=== PATIENT | male | born 1940 | race Caucasian/White ===

== ENCOUNTER → 2020-03-11 09:06 | Outpatient (CLI) | payer MEDICARE, OTHER, SELFPAY ==
--- NOTE | 2020-03-11 09:42 | DI.ECHO.S_ITS ---
Echocardiogram Report + + :Name: NAJMA HAMMER Study Date: 03/11/2020 Height: 69 in : :[facility] Weight: 248 lb : : Gender: Male BSA: 2.3 m2 : :: 1940 Age: 79 yrs BP: 155/82 mmHg: :Reason For Study: HYPERTENSIVE HD : : Performed By: Ole Franco : :Referring: JOSY PALOMARES : + + Interpretation Summary The ejection fraction is estimated to be 60-65%. There is no significant valvular heart disease. Procedure: A two-dimensional transthoracic echocardiogram with color flow and Doppler was performed. The study quality was technically adequate. There is no prior echocardiogram noted for this patient. The subcostal views were difficult to obtain and are suboptimal in quality. The suprasternal notch views were difficult to obtain and are suboptimal in quality. The patient was in normal sinus rhythm during the exam. Left Ventricle: The left ventricle is normal in size. There is normal left ventricular wall thickness. The ejection fraction is estimated to be 60-65%. There are no focal wall motion abnormalities. Right Ventricle: The right ventricle is normal in size and function. Atria: Both atria are normal in size. The interatrial septum is intact with no evidence for an atrial septal defect. Mitral Valve: There is mild mitral annular calcification. There is no mitral regurgitation noted. Aortic Valve: The aortic valve is not well visualized. There is no aortic valve stenosis. No aortic regurgitation is present. Tricuspid Valve: The tricuspid valve is normal in structure and function. No tricuspid regurgitation. Pulmonary artery pressures cannot be estimated because of the lack of a measurable TR jet velocity. Pulmonic Valve: The pulmonic valve is normal in structure and function. There is no pulmonic valvular regurgitation. Great Vessels: The aortic root is normal size. The ascending aorta is at the upper limits of normal in size. The pulmonary artery is normal size. The inferior vena cava was not well visualized. Pericardium/ Pleura There is no pericardial effusion. There is no pleural effusion. MMode/2D Measurements & Calculations LVIDd: 5.1 cm LVOT diam: 2.1 cm LVIDs: 3.3 cm Ao root diam: 3.7 cm FS: 34.8 % asc Aorta Diam: 3.5 cm EPSS: 1.1 cm IVSd: 0.87 cm LVPWd: 1.0 cm LV wing. diameter/BSA (cm/m^2): 2.3 LV sys. diameter/BSA (cm/m^2): 1.5 LA dimension: 3.7 cm RA long axis: 5.2 cm LA A2 area: 22.3 cm2 RA area: 15.1 cm2 LA A4 area: 15.8 cm2 RA vol: 37.0 ml LA length (vol): 5.1 cm RA : 16.3 ml/m2 LA vol: 59.2 ml LA vol index: 26.2 ml/m2 Doppler Measurements & Calculations Ao V2 max: 158.4 cm/sec LVOT Max Michael: 99.0 cm/sec Ao V2 mean: 108.5 cm/sec LV V1 max P.9 mmHg Ao max P.0 mmHg LV V1 VTI: 21.2 cm Ao mean P.2 mmHg ELLIOT(I,D): 2.6 cm2 Ao V2 VTI: 27.3 cm ELLIOT(V,D): 2.1 cm2 sev ratio: 0.78 ELLIOT indexed to BSA (cm^2/m^2): 1.1 MV E max michael: 65.3 cm/sec PA V2 max: 95.8 cm/sec MV A max michael: 106.3 cm/sec PA V2 mean: 68.1 cm/sec MV E/A: 0.61 PA mean P.0 mmHg Med Peak E' Michael: 4.4 cm/sec PA pr(Accel): 67.0 mmHg E/E' med: 14.8 Lat Peak E' Michael: 4.5 cm/sec E/E' lat: 14.4 E/e' average: 14.6 MV dec time: 0.34 sec SV(LVOT): 69.8 ml Reading Physician:03:45 PM
== END ==
PROVIDERS: Referring Provider Family Medicine; Visit Provider Family Medicine
DX: I11.9 Hypertensive heart disease without heart failure (principal); R60.9 Edema, unspecified
CPT/HCPCS: 93306

== ENCOUNTER → 2021-09-06 16:01 | Outpatient (CLI) | payer MEDICARE, OTHER, SELFPAY ==
[2021-09-06 18:54] LABS: BUN Creatinine Ratio 18.5 (6-22); Blood Urea Nitrogen 24 mg/dL (9-20); Calcium 9.8 mg/dL (8.4-10.2); Carbon Dioxide 28 mmol/L (22-32); Chloride 105 mmol/L (98-107); Estimated Glomerular Filt Rate 52.7 mL/min (>60); Glucose 141 mg/dL (80-110); HEMOLYSIS < 15 (0-50); Potassium 3.8 mmol/L (3.4-5.1); Sodium 140 mmol/L (137-145)
== END ==
PROVIDERS: Visit Provider Urology
DX: N39.0 Urinary tract infection, site not specified (principal); R31.0 Gross hematuria; R30.0 Dysuria; B96.20 Unspecified Escherichia coli [E. coli] as the cause of diseases classified elsewhere; Z77.22 Contact with and (suspected) exposure to environmental tobacco smoke (acute) (chronic)
CPT/HCPCS: 36415; 80048; 81002; 87077; 87086; 87186; 99214

== ENCOUNTER → 2021-09-27 12:12 | Outpatient (CLI) | payer MEDICARE, OTHER, SELFPAY ==
--- NOTE | 2021-09-27 12:14 | DI.CT.S_ITS ---
PROCEDURE: CT ABDOMEN PELVIS WO/W CON INDICATIONS: Gross hematuria/recurrent urinary tract infection TECHNIQUE: Optional 5 mm thick noncontrast images acquired from the diaphragm to the symphysis pubis. After the administration of intravenous contrast, 5 mm thick images acquired from the diaphragm to the symphysis pubis after a 10-minute delay. 2 mm thick coronal and sagittal reformats were then performed of the kidneys and ureters. For radiation dose reduction, the following was used: automated exposure control, adjustment of mA and/or kV according to patient size. COMPARISON: None. FINDINGS: Image quality: Excellent. Lung bases: Lung bases are clear. Heart size is normal. Urinary system: Nonspecific perinephric stranding. No evidence of hydronephrosis/hydroureter. 9.5 mm, nonobstructing calculus in the left lower pole. No appreciable right nephrolithiasis Renal calyces appear normal in morphology when filled with contrast. Opacified portions of both ureters demonstrate normal caliber. Bladder wall thickness is normal. No calcified bladder stones. Other solid organs: Liver is normal in size and enhancement. At least 2 hypoattenuating lesions are seen, measuring up to 1.3 cm (2-33), which may represent cysts. Gallbladder within normal limits . Biliary system is non dilated. Pancreas enhances normally. Spleen is normal in size and enhancement. No adrenal nodules. Peritoneum and bowel: Small hiatal hernia. No intestinal obstruction or inflammatory change. Normal appearance of the appendix. No free fluid or air. Nodes and vessels: No retroperitoneal or mesenteric adenopathy by size criteria. Aorta and inferior vena cava are normal in size. Abdominal wall: No ventral hernias. 3.6 cm fat attenuation lesion within the left rectus femoris, compatible with intramuscular lipoma. Pelvis: No pathologic free pelvic fluid. No inguinal hernias or adenopathy. Lipoma of the right spermatic cord. Bones: Mild T12 superior endplate compression deformity, age indeterminate. Multifocal degenerative change IMPRESSION: 1. Left nephrolithiasis without evidence of obstructive uropathy. 2. At least 2 hypoattenuating lesions are seen in the liver, which may reflect cysts. Dictated by: Pasha Moody M.D. on 09/27/2021 at 13:31 Approved by: Pasha Moody M.D. on 09/27/2021 at 13:40
== END ==
PROVIDERS: Referring Provider Urology; Visit Provider Urology
DX: R31.0 Gross hematuria (principal); N39.0 Urinary tract infection, site not specified; N20.0 Calculus of kidney; K76.9 Liver disease, unspecified
CPT/HCPCS: 74178

== ENCOUNTER 2023-01-25 10:16 | Inpatient (IN) | payer OTHER, SELFPAY ==
[2023-01-25] VITALS (28 sets, daily range): BP systolic 132–222; BP diastolic 72–154; PULSE 45–137; RESP 6–24; TEMP 36.8–37.5; O2SAT 90–95; BMI 35.9; BMI 34.6
--- NOTE | 2023-01-25 11:01 | PC.NURSE ---
pt reports he is borderline prediabetic with diet control only. He states he used to have nurse that would come check his sugars for him, but he does not recall what his normal sugar was and this has not happened in 1 month.
[2023-01-25 11:16] LABS: Add Manual Diff / Slide Review NO; Basophils Absolute Auto 100 /uL (0-100); Basophils Percent Auto 1.2 % (0-2); Eosinophils Absolute Auto 100 /uL (0-450); Eosinophils Percent Auto 0.7 % (2-4); Hematocrit 42.2 % (41-53); Hemoglobin 14.4 g/dL (13.5-17.5); Lymphocytes Absolute Auto 500 /uL (1100-4500); Lymphocytes Percent Auto 5.2 % (25-40); Mean Corpuscular HGB Conc 34.1 % (30-36); Mean Corpuscular Hemoglobin 31.1 PG (26-34); Monocytes Absolute Auto 600 /uL (0-900); Monocytes Percent Auto 5.7 % (3-14); Neutrophils Absolute Auto 8400 /uL (1500-7000); Neutrophils Percent Auto 87.2 % (50-75); Platelet Count 110 X10^3/uL (150-400); Red Blood Cell Count 4.64 X10^6/uL (4.5-5.9); Red Cell Distribution Width 13.9 % (11.6-14.8); White Blood Cell Count 9.7 X10^3/uL (4.5-11.0)
--- NOTE | 2023-01-25 11:16 | DI.CT.S_ITS ---
PROCEDURE: CT CHEST ABD PEL W CON INDICATIONS: Fall/lower back pain TECHNIQUE: After the administration of intravenous contrast, 5 mm thick sections acquired from the lung apices to the symphysis. 5 mm coronal and sagittal reformats were performed, with additional 7 mm MIP reformats through the lungs. For radiation dose reduction, the following was used: automated exposure control, adjustment of mA and/or kV according to patient size. COMPARISON: None. FINDINGS: Image quality: Excellent. CHEST: Lungs and pleura: 1.6 cm juxtapleural nodule in the right upper lobe (series 12, image 119). Additional satellite nodularity measuring 0.8 cm (series 12, image 119) No pneumothorax. No effusions. Mediastinum: Heart size is normal. No pericardial effusion. No mediastinal or hilar adenopathy by size criteria. Thoracic aorta and central pulmonary arteries are normal in size. Esophagus is normal in caliber. Small hiatal hernia. Chest wall: No axillary or supraclavicular adenopathy by size criteria. Thyroid gland is unremarkable . ABDOMEN: Solid organs: Subcentimeter hypoattenuating liver lesions, too small to characterize by CT. Gallbladder is unremarkable. No evidence of splenic, kidney, adrenal or pancreatic injury or abnormality. Peritoneum and bowel: Bowel loops demonstrate normal wall thickness and caliber. No free fluid or air. Nodes and vessels: No retroperitoneal or mesenteric adenopathy by size criteria. Aorta and inferior vena cava are normal in size. Miscellaneous: No ventral hernias. Slight retroperitoneal fat stranding anterior to the left psoas muscle, without enlargement of the psoas muscle to suggest underlying hematoma. PELVIS: Genitourinary: Bladder wall thickness is normal. Miscellaneous: Small right inguinal hernia containing fat. Bones: Small cortical step-off of the superior endplate of the L2 vertebral body and L5 vertebral body, without definite fracture line. Stable wedge-shaped compression deformity of the T12 vertebral body. No evidence of hip fracture. IMPRESSION: Small cortical step-off of the superior endplates of the L2 and L5 vertebral bodies, new since 05/17/2022. Findings may indicate endplate compression deformity, without extension to the posterior vertebral body. Correlate with site of pain. 1.6 cm juxtapleural nodularity in the right upper lobe, with associated 0.8 cm satellite nodularity. Findings probably represent scar, less likely malignancy. Recommend three-month follow-up with chest CT. No evidence of hip fracture. Dictated by: Brennan Whittington M.D. on 01/25/2023 at 13:25 Approved by: Brennan Whittington M.D. on 01/25/2023 at 13:33
--- NOTE | 2023-01-25 11:16 | DI.CT.S_ITS ---
PROCEDURE: CT ANGIO HEAD AND NECK INDICATIONS: Altered mental status TECHNIQUE: Pre-contrast 4.5 mm thick sections acquired from the foramen magnum to the vertex. After the administration of intravenous contrast, 1 mm thick sections acquired from the aortic arch through the Solomon of Sun. Post-contrast 4.5 mm thick sections then re-acquired from the foramen magnum to the vertex. 3-dimensional euavshr-pkxiujdid-byfrpyiiqa (MIP) and/or volume rendering reformats were acquired of the central intracranial vasculature and neck separately. For radiation dose reduction, the following was used: automated exposure control, adjustment of mA and/or kV according to patient size. COMPARISON: [facility], CT, HEAD WITHOUT CONTRAST, 06/23/2016, 10:03. FINDINGS: Noncontrast CT Brain: Cerebrum, cerebellum and brainstem: Moderate atrophy and white matter chronic ischemic change. No evidence of intracranial hemorrhage, mass effect or extra-axial fluid collections. No white matter disease. Hdez-white distinction is well preserved throughout the exam. Ventricles: Ventriculomegaly slightly out of proportion to sulcal widening Skull base: The bony sella, pituitary gland and infundibulum are unremarkable. Posterior fossa and cerebellum are unremarkable. Visualized portions of the external auditory canals and tympanic cavity are within normal limits. Calvarium and Scalp: No scalp soft tissue swelling. The underlying calvarium is intact without skull fracture or lytic lesion. Paranasal Sinuses: Unremarkable as visualized. No acute sinusitis. Mastoids: Unremarkable as visualized. No mastoid effusion. Cerebral CT Angiogram: Internal carotid arteries: No acute findings. Intracranial ICA are patent with no significant stenosis. No occlusion. No aneurysm. Anterior cerebral arteries: Unremarkable. No significant stenosis. No occlusion. No aneurysm. Middle cerebral arteries: Unremarkable. No significant stenosis. No occlusion. No aneurysm. 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 The P2 segment is supplied by a widely patent posterior communicating artery. Remainder of the distal vasculature unremarkable. Basilar artery: Unremarkable. No significant stenosis. No occlusion. No aneurysm. Vertebral arteries: Left vertebral artery dominance Dural venous sinuses: Unremarkable given phase of enhancement. Other: Arterial phase brain parenchyma unremarkable. Neck CT Angiogram: Internal carotid arteries: Bilateral atherosclerotic plaque in both proximal internal carotid arteries without hemodynamically significant stenosis Common carotid arteries: Unremarkable. No significant stenosis. No dissection or occlusion. External carotid arteries: Unremarkable. No occlusion. Vertebral arteries: Left vertebral artery dominance Aortic arch and mediastinum: Unremarkable. Other: Emphysematous changes noted in both lung apices IMPRESSION: 1. Unremarkable CT angiogram head and neck without evidence of large vessel occlusion, aneurysm or significant stenosis. 2. Moderate atrophy and white matter chronic ischemic change without intracranial hemorrhage or mass effect 3. Moderate ventriculomegaly out of proportion to degree of cerebral atrophy. Differential would include centralized atrophy and normal pressure hydrocephalus. If clinically relevant, consider additional confirmatory testing. Note: Any reported proximal ICA stenosis was calculated using NASCET guidelines. Approved by: Marcial Bellamy M.D. on 01/25/2023 at 12:48
--- NOTE | 2023-01-25 11:17 | ED.AMS ---
HPI - Altered Mental Status General Chief Complaint: Weakness Stated Complaint: GLF Time Seen by Provider: 01/25/23 11:00 Source: patient and EMS Mode of arrival: EMS History of Present Illness HPI narrative: [facility] in by ambulance from [facility]. Daughter at bedside. Patient has had confusion for the past 3 days. This is not his normal self. He is had ground level falls as well. This is new for patient. Patient has had forgetfulness and odd behavior according to daughter. He is usually alert and cognitively intact. Patient did have a fall last year which prompted him to be in a [facility]. For safety concerns. Patient usually uses a walker and a wheelchair. He does not ambulate independently. He must use these devices. He has fallen off his bed as well. He only complains of lower back pain from his falls. He is awake alert oriented self and date of . He does deny any chest pain headache weakness palpitations numbness tingling or weakness before falling. No prior history of stroke. Patient is not on any blood thinners. Related Data Previous Rx's Medication Instructions Recorded amlodipine 5 mg tablet (Norvasc) 10 mg PO DAILY #30 tabs 01/28/23 aspirin 81 mg tablet,delayed 81 mg PO DAILY #30 tabs 01/28/23 release atorvastatin 20 mg tablet 80 mg PO BEDTIME #120 tabs 01/28/23 clopidogrel 75 mg tablet 75 mg PO DAILY #20 tabs 01/28/23 furosemide 20 mg tablet 20 mg PO DAILY #30 tabs 01/28/23 insulin glargine 100 unit/mL (3 20 unit (0.2 mL) SUBCUT BID #15 mL 01/28/23 mL) subcutaneous pen (Lantus Solostar U-100 Insulin) metformin 1,000 mg tablet 1,000 mg PO BID #60 tabs 01/28/23 oxycodone 5 mg tablet 5 mg PO Q4HR PRN Pain, Moderate 01/28/23 (4-6) #15 tabs polyethylene glycol 3350 17 gram 17 g PO DAILY PRN Constipation #14 01/28/23 oral powder packet ea potassium chloride 20 mEq 40 meq PO DAILY #30 tabs 01/28/23 tablet,extended release(part/cryst) (Klor-Con M) sennosides 8.6 mg tablet (senna) 8.6 mg PO BID PRN Constipation #30 01/28/23 tabs tamsulosin 0.4 mg capsule (Flomax) 0.4 mg PO BEDTIME #30 caps 01/28/23 Allergies Allergy/AdvReac Type Severity Reaction Status Date / Time No Known Allergies Allergy Verified 01/25/23 10:35 Review of Systems Review of Systems Narrative: GENERAL: negative chills, fatigue, malaise, fever, sweats. HEENT: negative sinus pain, ear pain, sore throat RESPIRATORY: negative dyspnea, cough CARDIOVASCULAR: negative chest pain, palpitations GASTROINTESTINAL: negative nausea, vomiting, abdominal pain : negative dysuria, frequency, hematuria MUSCULOSKELETAL: negative muscle, positive back/bony pain SKIN: negative rash, skin lesions NEUROLOGIC: negative weakness, numbness ROS Unobtainable: All systems reviewed & are unremarkable except as noted in HPI and below Patient History Medical History E. coli urinary tract infection Gross hematuria Recurrent urinary tract infection Secondhand smoke exposure Social History household members: none Smoking Status: Never smoker alcohol intake: current Smoking Status: Unknown if ever smoked alcohol intake frequency: a few times a week Alcohol type: hard liquor Substance Use Type: does not use Exam Narrative Exam Narrative: GENERAL: in no distress, not toxic not dyspneic HEAD: Normocephalic. Nontender face and scalp. No lacerations or bruising. EYES: Pupils equal round ENT: Mucous membranes moist. NECK: Trachea midline. No midline tenderness or step-off of the cervical or thoracic spine. There is midline tenderness of the lower lumbar spine at L4 area. No step-off. No bruising to the back seen. Log rolled patient to the left for exam. CARDIOVASCULAR: Regular rate and rhythm without murmurs RESPIRATORY: Clear to auscultation. Breath sounds equal bilaterally. No wheezes, rales, or rhonchi. GASTROINTESTINAL: Abdomen soft, non-tender EXTREMITIES: No gross deformities. BACK: No flank tenderness. NEURO: Awake alert oriented to self and date of . Clear speech no facial droop light touch intact to bilateral face hands and feet. Strong equal geographic information systems analyst. Able to lift each leg off the bed independently without assist for 5 seconds. Fast exam is negative. SKIN: Warm and dry PSYCH: Not anxious, is cooperative Initial Vital Signs Initial Vital Signs: Vital Signs Temperature 99.5 F 01/25/23 10:28 Pulse Rate 93 H 01/25/23 10:28 Respiratory Rate 18 01/25/23 10:28 Blood Pressure 170/83 H 01/25/23 10:28 Pulse Oximetry 93 01/25/23 10:28 Oxygen Delivery Method Room Air 01/25/23 10:28 Course Orders Ordered: Discontinued Medications Acetaminophen (Acetaminophen 325 Mg Tablet) 650 mg PO Q6H PRN PRN Reason: Fever/Mild Pain (1-3) Last Admin: 01/27/23 08:21 Dose: 650 mg Documented By: Admin: 01/26/23 16:44 Dose: 650 mg Documented By: Admin: 01/25/23 17:54 Dose: 650 mg Documented By: RAY Amlodipine Besylate (Amlodipine 5 Mg Tablet) 10 mg PO DAILY [facility] Last Admin: 01/28/23 08:32 Dose: 10 mg Documented By: Admin: 01/27/23 08:21 Dose: 10 mg Documented By: Admin: 01/26/23 08:57 Dose: 10 mg Documented By: Admin: 01/25/23 17:51 Dose: 10 mg Documented By: RAY Aspirin (Aspirin 81 Mg Chew Tab) 324 mg PO NOW ONE Stop: 01/25/23 11:01 Last Admin: 01/25/23 14:52 Dose: Not Given Documented By: COLLEEN Aspirin (Aspirin Ec 81 Mg Tablet) 81 mg PO DAILY [facility] Last Admin: 01/28/23 08:33 Dose: 81 mg Documented By: Admin: 01/27/23 08:21 Dose: 81 mg Documented By: Admin: 01/26/23 16:44 Dose: 81 mg Documented By: KATJA Atorvastatin Calcium (Atorvastatin 20 Mg Tablet) 80 mg PO BEDTIME [facility] Last Admin: 01/27/23 21:43 Dose: 80 mg Documented By: Admin: 01/26/23 21:39 Dose: 80 mg Documented By: Clopidogrel Bisulfate (Clopidogrel 75 Mg Tablet) 75 mg PO DAILY [facility] Stop: 02/16/23 15:54 Last Admin: 01/28/23 08:32 Dose: 75 mg Documented By: Admin: 01/27/23 08:21 Dose: 75 mg Documented By: Admin: 01/26/23 16:44 Dose: 75 mg Documented By: KATJA Dextrose (Dextrose 50 % In Water 25 Gm/50 Ml Syringe) 25 gm IV PRN PRN PRN Reason: Hypoglycemia Enoxaparin Sodium (Enoxaparin 40 Mg/0.4 Ml Syringe) 40 mg SUBCUT DAILY [facility] Last Admin: 01/28/23 08:36 Dose: 40 mg Documented By: Admin: 01/27/23 08:22 Dose: 40 mg Documented By: Admin: 01/26/23 08:58 Dose: 40 mg Documented By: KATJA Furosemide (Furosemide 20 Mg Tablet) 20 mg PO DAILY [facility] Last Admin: 01/28/23 08:33 Dose: 20 mg Documented By: Admin: 01/27/23 08:21 Dose: 20 mg Documented By: Admin: 01/26/23 08:58 Dose: 20 mg Documented By: Admin: 01/25/23 17:50 Dose: 20 mg Documented By: RAY Sodium Chloride (Normal Saline 0.9%) 500 mls @ 1,000 mls/hr IV BOLUS ONE Stop: 01/25/23 11:52 Last Infusion: 01/25/23 14:33 Dose: 0 mls/hr Documented By: Admin: 01/25/23 14:01 Dose: 1,000 mls/hr Documented By: COLLEEN Insulin Glargine (Insulin Glargine 100 Unit/Ml 3ml Pen) 15 unit SUBCUT DAILY [facility] Last Admin: 01/26/23 08:59 Dose: 15 unit Documented By: KATJA Co-signed By: MAGY Insulin Glargine (Insulin Glargine 100 Unit/Ml 3ml Pen) 15 unit SUBCUT BID [facility] Last Admin: 01/27/23 08:23 Dose: 15 unit Documented By: RAY Co-signed By: MAGY Admin: 01/26/23 21:40 Dose: 15 unit Documented By: Co-signed By: ADELITA Insulin Glargine (Insulin Glargine 100 Unit/Ml 3ml Pen) 20 unit SUBCUT BID [facility] Last Admin: 01/28/23 08:33 Dose: 20 unit Documented By: SYED Co-signed By: (2) Admin: 01/27/23 21:42 Dose: 20 unit Documented By: Co-signed By: Insulin Human Lispro (Insulin Lispro 100 Unit/Ml 3ml Vial) [facility]; Protocol Insulin Human Lispro (Insulin Lispro 100 Unit/Ml 3ml Vial) 0 unit SUBCUT [facility]; Protocol Last Admin: 01/28/23 08:27 Dose: 7 unit Documented By: SYED Co-signed By: MS(2) Admin: 01/27/23 21:42 Dose: 7 unit Documented By: Co-signed By: VH Admin: 01/27/23 17:09 Dose: 7 unit Documented By: RAY Co-signed By: Little Insulin Human Regular (Insulin Regular 100 Unit/Ml 3 Ml Vial) 20 unit IV NOW ONE Stop: 01/25/23 17:05 Last Admin: 01/25/23 17:30 Dose: Not Given Documented By: RAY Insulin Human Regular (Insulin Regular 100 Unit/Ml 3 Ml Vial) 0 unit SUBCUT Q6H [facility]; Protocol Last Admin: 01/25/23 17:58 Dose: 7 unit Documented By: RAY Co-signed By: BLAIR Insulin Human Regular (Insulin Regular 100 Unit/Ml 3 Ml Vial) 10 unit SUBCUT NOW ONE Stop: 01/25/23 17:50 Last Admin: 01/25/23 17:56 Dose: 10 unit Documented By: RAY Co-signed By: BLAIR Insulin Human Regular (Insulin Regular 100 Unit/Ml 3 Ml Vial) 0 unit SUBCUT [facility]; Protocol Last Admin: 01/27/23 11:26 Dose: 10 unit Documented By: RAY Co-signed By: CLL Admin: 01/27/23 08:25 Dose: 7 unit Documented By: RAY Co-signed By: CLL Admin: 01/26/23 21:41 Dose: 5 unit Documented By: Co-signed By: ADELITA Admin: 01/26/23 16:45 Dose: 100 unit Documented By: KATJA Co-signed By: CLL Admin: 01/26/23 11:58 Dose: 12 unit Documented By: AKTJA Co-signed By: CLL Admin: 01/26/23 08:29 Dose: 7 unit Documented By: KATJA Co-signed By: CLL Admin: 01/25/23 21:45 Dose: 10 unit Documented By: EDY Co-signed By: DAGO Labetalol HCl (Labetalol 20 Mg/4 Ml Syringe) 10 mg IV Q5MIN PRN PRN Reason: SBP >190 or DBP >110 Melatonin (Melatonin 3 Mg Tablet) 6 mg PO BEDTIME PRN PRN Reason: Insomnia Last Admin: 01/27/23 21:43 Dose: 6 mg Documented By: Admin: 01/25/23 21:19 Dose: 6 mg Documented By: EDY Naloxone HCl (Naloxone 0.4 Mg/Ml Vial) 0.2 mg IV Q2MIN PRN PRN Reason: Opiate Reversal Oxycodone HCl (Oxycodone Ir 5 Mg Tablet) 5 mg PO Q4HR PRN PRN Reason: Pain, Moderate (4-6) Last Admin: 01/27/23 11:19 Dose: 5 mg Documented By: Admin: 01/26/23 13:52 Dose: 5 mg Documented By: Admin: 01/26/23 09:52 Dose: 5 mg Documented By: Admin: 01/25/23 17:54 Dose: 5 mg Documented By: RAY Polyethylene Glycol (Polyethylene Glycol 3350 17 Gm Powd.Pack) 17 gm PO DAILY PRN PRN Reason: Constipation Last Admin: 01/27/23 11:20 Dose: 17 gm Documented By: RAY Potassium Chloride (Potassium Chloride 20 Meq Tab) 20 meq PO DAILY [facility] Last Admin: 01/25/23 17:50 Dose: 20 meq Documented By: RAY Potassium Chloride (Potassium Chloride 20 Meq Tab) 40 meq PO DAILY [facility] Last Admin: 01/28/23 08:33 Dose: 40 meq Documented By: Admin: 01/27/23 08:20 Dose: 40 meq Documented By: Admin: 01/26/23 08:58 Dose: 40 meq Documented By: KATJA Potassium Chloride (Potassium Chloride 20 Meq Tab) 40 meq PO 1500 ONE Stop: 01/26/23 15:01 Last Admin: 01/26/23 15:39 Dose: 40 meq Documented By: KATJA Potassium Chloride (Potassium Chloride 20 Meq Tab) 40 meq PO 1500 ONE Stop: 01/27/23 15:01 Last Admin: 01/27/23 17:07 Dose: 40 meq Documented By: RAY Sennosides (Sennosides 8.6 Mg Tablet) 8.6 mg PO BID PRN PRN Reason: Constipation Last Admin: 01/25/23 21:19 Dose: 8.6 mg Documented By: EDY Tamsulosin HCl (Tamsulosin 0.4 Mg Capsule) 0.4 mg PO BEDTIME [facility] Last Admin: 01/27/23 21:43 Dose: 0.4 mg Documented By: Admin: 01/26/23 21:40 Dose: 0.4 mg Documented By: Admin: 01/25/23 21:19 Dose: 0.4 mg Documented By: EDY Vital Signs Vital signs: Vital Signs - 8 hr 01/25/23 10:28 01/25/23 10:39 01/25/23 11:00 Temperature 99.5 F Pulse Rate 93 H 99 H 102 H Respiratory Rate 18 24 23 Blood Pressure 170/83 H Pulse Oximetry 93 93 93 Oxygen Delivery Method Room Air 01/25/23 11:01 01/25/23 11:01 01/25/23 11:30 Temperature Pulse Rate 103 H Respiratory Rate 16 Blood Pressure 196/93 H 213/103 H Pulse Oximetry 92 Oxygen Delivery Method 01/25/23 11:30 01/25/23 12:00 01/25/23 12:01 Temperature Pulse Rate 104 H 104 H Respiratory Rate 6 L Blood Pressure 222/95 H Pulse Oximetry 90 L 91 Oxygen Delivery Method 01/25/23 12:01 01/25/23 12:02 01/25/23 12:03 Temperature Pulse Rate 106 H 106 H Respiratory Rate 14 12 Blood Pressure 185/87 H Pulse Oximetry 90 L 90 L Oxygen Delivery Method 01/25/23 12:03 01/25/23 12:30 01/25/23 12:31 Temperature Pulse Rate 104 H 106 H Respiratory Rate 16 20 Blood Pressure 205/104 H Pulse Oximetry 91 93 Oxygen Delivery Method 01/25/23 12:31 01/25/23 13:00 01/25/23 13:16 Temperature Pulse Rate 105 H 100 H Respiratory Rate 24 Blood Pressure 216/101 H Pulse Oximetry 93 92 Oxygen Delivery Method 01/25/23 13:16 01/25/23 13:30 01/25/23 13:31 Temperature Pulse Rate 105 H 98 H 100 H Respiratory Rate Blood Pressure Pulse Oximetry 93 94 93 Oxygen Delivery Method 01/25/23 13:31 01/25/23 14:00 01/25/23 14:01 Temperature Pulse Rate 101 H Respiratory Rate Blood Pressure 166/94 H 196/106 H Pulse Oximetry 93 Oxygen Delivery Method 01/25/23 14:01 01/25/23 14:30 01/25/23 14:30 Temperature Pulse Rate 101 H 104 H Respiratory Rate Blood Pressure 187/113 H Pulse Oximetry 92 94 Oxygen Delivery Method 01/25/23 15:00 01/25/23 15:00 01/25/23 15:30 Temperature Pulse Rate 103 H Respiratory Rate Blood Pressure 186/119 H 199/99 H Pulse Oximetry 93 Oxygen Delivery Method 01/25/23 15:30 01/25/23 16:00 01/25/23 16:08 Temperature Pulse Rate 93 H 107 H 137 H Respiratory Rate Blood Pressure Pulse Oximetry Oxygen Delivery Method 01/25/23 16:08 01/25/23 16:11 01/25/23 16:11 Temperature Pulse Rate 102 H Respiratory Rate 20 Blood Pressure 187/154 H 210/101 H Pulse Oximetry 94 Oxygen Delivery Method 01/25/23 16:30 Temperature Pulse Rate 108 H Respiratory Rate 23 Blood Pressure Pulse Oximetry 94 Oxygen Delivery Method MDM - Altered Mental Status Lab Data 01/28/23 06:00 01/28/23 06:00 Labs: Lab Results 01/25/23 01/25/23 01/25/23 Range/Units 10:30 10:31 10:31 WBC 9.7 (4.5-11.0) X10^3/uL RBC 4.64 (4.5-5.9) X10^6/uL Hgb 14.4 (13.5-17.5) g/dL Hct 42.2 (41-53) % MCV 91.0 (80-100) fL MCH 31.1 (26-34) PG MCHC 34.1 (30-36) % RDW 13.9 (11.6-14.8) % Plt Count 110 L (150-400) X10^3/uL Neut % (Auto) 87.2 H (50-75) % Lymph % (Auto) 5.2 L (25-40) % Hunt % (Auto) 5.7 (3-14) % Eos % (Auto) 0.7 L (2-4) % Baso % (Auto) 1.2 (0-2) % Neut # (Auto) 8400 H (5262-3160) /uL Lymph # (Auto) 500 L (7107-2351) /uL Hunt # (Auto) 600 (0-900) /uL Eos # (Auto) 100 (0-450) /uL Baso # (Auto) 100 (0-100) /uL PT (10.1-12.7) SECONDS INR (0.9-1.3) APTT (26-36) SECONDS Sodium (137-145) mmol/L Potassium (3.4-5.1) mmol/L Chloride (98-107) mmol/L Carbon Dioxide (22-32) mmol/L BUN (9-20) mg/dL Creatinine (0.66-1.25) mg/dL Estimated GFR (>60) mL/min BUN/Creatinine Ratio (6-22) Glucose (80-110) mg/dL Hgb A1c (Ref Lab) 10.7 H (4.8-5.6) % Calcium (8.4-10.2) mg/dL Magnesium (1.6-2.3) mg/dL Total Bilirubin (0.2-1.3) mg/dL AST (17-59) IU/L ALT (<50) IU/L Alkaline Phosphatase (38-126) U/L Total Creatine Kinase (55-170) U/L CK-MB (CK-2) CK-MB (CK-2) Rel Index Troponin I (0.01-0.034) ng/mL Total Protein (6.3-8.2) g/dL Albumin (3.5-5.0) g/dL Globulin (1.7-4.1) g/dL Albumin/Globulin Ratio (1.0-2.8) Triglycerides (35-150) mg/dL Cholesterol (140-199) mg/dL LDL Cholesterol, Calc (<100) mg/dL HDL Cholesterol (40-60) mg/dL Lipase (23-300) U/L TSH (0.47-4.68) uIU/mL Urine RBC 1-5/hpf (0-5/HPF) Urine WBC 1-5/hpf (0-5/HPF) Ur Squamous Epith Cells 0-1 /hpf (0-5/HPF) Urine Bacteria None seen (None) Ur Culture Indicated? Cult not indicated Ketones (<0.27) mmol/L SARS-CoV-2 (PCR) (Negative) 01/25/23 01/25/23 01/25/23 Range/Units 12:00 12:00 12:00 WBC (4.5-11.0) X10^3/uL RBC (4.5-5.9) X10^6/uL Hgb (13.5-17.5) g/dL Hct (41-53) % MCV (80-100) fL MCH (26-34) PG MCHC (30-36) % RDW (11.6-14.8) % Plt Count (150-400) X10^3/uL Neut % (Auto) (50-75) % Lymph % (Auto) (25-40) % Hunt % (Auto) (3-14) % Eos % (Auto) (2-4) % Baso % (Auto) (0-2) % Neut # (Auto) (0836-6986) /uL Lymph # (Auto) (1029-8459) /uL Hunt # (Auto) (0-900) /uL Eos # (Auto) (0-450) /uL Baso # (Auto) (0-100) /uL PT 13.5 H (10.1-12.7) SECONDS INR 1.2 (0.9-1.3) APTT 29 (26-36) SECONDS Sodium 139 (137-145) mmol/L Potassium 3.4 (3.4-5.1) mmol/L Chloride 100 (98-107) mmol/L Carbon Dioxide 33 H (22-32) mmol/L BUN 20 (9-20) mg/dL Creatinine 1.21 (0.66-1.25) mg/dL Estimated GFR 59 L (>60) mL/min BUN/Creatinine Ratio 16.5 (6-22) Glucose 489 H* (80-110) mg/dL Hgb A1c (Ref Lab) (4.8-5.6) % Calcium 9.0 (8.4-10.2) mg/dL Magnesium 2.3 (1.6-2.3) mg/dL Total Bilirubin 0.8 (0.2-1.3) mg/dL AST 19 (17-59) IU/L ALT 25 (<50) IU/L Alkaline Phosphatase 128 H (38-126) U/L Total Creatine Kinase 46 L (55-170) U/L CK-MB (CK-2) TNP CK-MB (CK-2) Rel Index TNP Troponin I < 0.012 (0.01-0.034) ng/mL Total Protein 7.4 (6.3-8.2) g/dL Albumin 3.9 (3.5-5.0) g/dL Globulin 3.5 (1.7-4.1) g/dL Albumin/Globulin Ratio 1.1 (1.0-2.8) Triglycerides (35-150) mg/dL Cholesterol (140-199) mg/dL LDL Cholesterol, Calc (<100) mg/dL HDL Cholesterol (40-60) mg/dL Lipase 38 (23-300) U/L TSH (0.47-4.68) uIU/mL Urine RBC (0-5/HPF) Urine WBC (0-5/HPF) Ur Squamous Epith Cells (0-5/HPF) Urine Bacteria (None) Ur Culture Indicated? Ketones 0.26 (<0.27) mmol/L SARS-CoV-2 (PCR) (Negative) 01/25/23 01/25/23 01/26/23 Range/Units 12:00 17:02 04:45 WBC 9.0 (4.5-11.0) X10^3/uL RBC 4.47 L (4.5-5.9) X10^6/uL Hgb 13.8 (13.5-17.5) g/dL Hct 40.2 L (41-53) % MCV 89.8 (80-100) fL MCH 30.9 (26-34) PG MCHC 34.4 (30-36) % RDW 13.7 (11.6-14.8) % Plt Count 119 L (150-400) X10^3/uL Neut % (Auto) 76.7 H (50-75) % Lymph % (Auto) 11.3 L (25-40) % Hunt % (Auto) 8.5 (3-14) % Eos % (Auto) 2.8 (2-4) % Baso % (Auto) 0.7 (0-2) % Neut # (Auto) 6900 (4174-9752) /uL Lymph # (Auto) 1000 L (9473-3612) /uL Hunt # (Auto) 800 (0-900) /uL Eos # (Auto) 300 (0-450) /uL Baso # (Auto) 100 (0-100) /uL PT (10.1-12.7) SECONDS INR (0.9-1.3) APTT (26-36) SECONDS Sodium (137-145) mmol/L Potassium (3.4-5.1) mmol/L Chloride (98-107) mmol/L Carbon Dioxide (22-32) mmol/L BUN (9-20) mg/dL Creatinine (0.66-1.25) mg/dL Estimated GFR (>60) mL/min BUN/Creatinine Ratio (6-22) Glucose (80-110) mg/dL Hgb A1c (Ref Lab) (4.8-5.6) % Calcium (8.4-10.2) mg/dL Magnesium (1.6-2.3) mg/dL Total Bilirubin (0.2-1.3) mg/dL AST (17-59) IU/L ALT (<50) IU/L Alkaline Phosphatase (38-126) U/L Total Creatine Kinase (55-170) U/L CK-MB (CK-2) CK-MB (CK-2) Rel Index Troponin I (0.01-0.034) ng/mL Total Protein (6.3-8.2) g/dL Albumin (3.5-5.0) g/dL Globulin (1.7-4.1) g/dL Albumin/Globulin Ratio (1.0-2.8) Triglycerides (35-150) mg/dL Cholesterol (140-199) mg/dL LDL Cholesterol, Calc (<100) mg/dL HDL Cholesterol (40-60) mg/dL Lipase (23-300) U/L TSH 1.71 (0.47-4.68) uIU/mL Urine RBC (0-5/HPF) Urine WBC (0-5/HPF) Ur Squamous Epith Cells (0-5/HPF) Urine Bacteria (None) Ur Culture Indicated? Ketones (<0.27) mmol/L SARS-CoV-2 (PCR) Negative (Negative) 01/26/23 01/26/23 Range/Units 04:45 04:45 WBC (4.5-11.0) X10^3/uL RBC (4.5-5.9) X10^6/uL Hgb (13.5-17.5) g/dL Hct (41-53) % MCV (80-100) fL MCH (26-34) PG MCHC (30-36) % RDW (11.6-14.8) % Plt Count (150-400) X10^3/uL Neut % (Auto) (50-75) % Lymph % (Auto) (25-40) % Hunt % (Auto) (3-14) % Eos % (Auto) (2-4) % Baso % (Auto) (0-2) % Neut # (Auto) (6499-4482) /uL Lymph # (Auto) (3667-6430) /uL Hunt # (Auto) (0-900) /uL Eos # (Auto) (0-450) /uL Baso # (Auto) (0-100) /uL PT (10.1-12.7) SECONDS INR (0.9-1.3) APTT (26-36) SECONDS Sodium 140 (137-145) mmol/L Potassium 3.1 L (3.4-5.1) mmol/L Chloride 104 (98-107) mmol/L Carbon Dioxide 31 (22-32) mmol/L BUN 19 (9-20) mg/dL Creatinine 1.07 (0.66-1.25) mg/dL Estimated GFR > 60 (>60) mL/min BUN/Creatinine Ratio 17.8 (6-22) Glucose 206 H D (80-110) mg/dL Hgb A1c (Ref Lab) (4.8-5.6) % Calcium 8.5 (8.4-10.2) mg/dL Magnesium (1.6-2.3) mg/dL Total Bilirubin (0.2-1.3) mg/dL AST (17-59) IU/L ALT (<50) IU/L Alkaline Phosphatase (38-126) U/L Total Creatine Kinase (55-170) U/L CK-MB (CK-2) CK-MB (CK-2) Rel Index Troponin I (0.01-0.034) ng/mL Total Protein (6.3-8.2) g/dL Albumin (3.5-5.0) g/dL Globulin (1.7-4.1) g/dL Albumin/Globulin Ratio (1.0-2.8) Triglycerides 157 H (35-150) mg/dL Cholesterol 185 (140-199) mg/dL LDL Cholesterol, Calc 122 H (<100) mg/dL HDL Cholesterol 32 L (40-60) mg/dL Lipase (23-300) U/L TSH (0.47-4.68) uIU/mL Urine RBC (0-5/HPF) Urine WBC (0-5/HPF) Ur Squamous Epith Cells (0-5/HPF) Urine Bacteria (None) Ur Culture Indicated? Ketones (<0.27) mmol/L SARS-CoV-2 (PCR) (Negative) Urine Dip Bedside Urine Glucose 1000 mg/dl Bedside Urine Bilirubin - Negative Bedside Urine Ketone - Negative Urine Specific [place] 1.010 Bedside Urine Occult Blood +/- Bedside Urine pH 6.0 Bedside Urine Protein +/- 15 Bedside Urine Urobilinogen - Negative Bedside Urine Nitrite - Negative Bedside Urine Leukocytes - Negative Esterase Imaging Data CTA - brain/neck: Radiologist's Impression: IMPRESSION: 1. Unremarkable CT angiogram head and neck without evidence of large vessel occlusion, aneurysm or significant stenosis. 2. Moderate atrophy and white matter chronic ischemic change without intracranial hemorrhage or mass effect 3. Moderate ventriculomegaly out of proportion to degree of cerebral atrophy. Differential would include centralized atrophy and normal pressure hydrocephalus. If clinically relevant, consider additional confirmatory testing. CT chest abdomen and pelvis: Radiologist's Impression: MPRESSION:? Small cortical step-off of the superior endplates of the L2 and L5 vertebral bodies, new since 05/17/2022.? Findings may indicate endplate compression deformity, without extension to the posterior vertebral body. Correlate with site of pain. ? 1.6 cm juxtapleural nodularity in the right upper lobe, with associated 0.8 cm satellite nodularity.? Findings probably represent scar, less likely malignancy.? Recommend three-month follow-up with chest CT. ? No evidence of hip fracture. [facility] Narrative Medical decision making narrative: [facility] brought in by ambulance from [facility]. Daughter at bedside. Patient has had confusion for the past 3 days. This is not his normal self. He is had ground level falls as well. This is new for patient. Patient has had forgetfulness and odd behavior according to daughter. He is usually alert and cognitively intact. Patient did have a fall last year which prompted him to be in a [facility]. For safety concerns. Patient usually uses a walker and a wheelchair. He does not ambulate independently. He must use these devices. He has fallen off his bed as well. He only complains of lower back pain from his falls. He is awake alert oriented self and date of . He does deny any chest pain headache weakness palpitations numbness tingling or weakness before falling. No prior history of stroke. Patient is not on any blood thinners. After history and exam CBC CMP urinalysis CT angiogram head CT chest abdomen pelvis EKG troponin normal saline [facility] CC: Weakness/fall Complicating co-morbidities: Age, UTI history Data collected from: Patient and daughter Medical records reviewed: No previous visits for this complaint Differential considered: Includes but not limited to stroke dehydration UTI arrhythmia TIA dementia Exam documented above, pertinent findings include: No slurred speech or facial droop. No motor neuro deficits Lab Test results independently reviewed as above. Pertinent findings: Hemoglobin 14.4 hematocrit 42.2 739 potassium 3.4 bicarb 33 BUN 20 creatinine 1.21, glucose 489 troponin less than 0.012 AST 19 ALT 25 ketones 0.26 Independently reviewed EKG as above sinus rhythm rate [address] elevation or depression Imaging studies independently reviewed: CT angiogram head and neck no acute process. There is moderate ventriculomegaly. CT chest abdomen pelvis superior endplate fractures of L2 and L5. Consultations: 4:30 p.m.. Spoke with hospitalist, Dr. Drummond, he will admit patient. He will order medications for hyperglycemia Treatments: Normal saline Re-evaluations: 4:15 p.m.. Spoke with patient and daughter. They do agree for admission. Patient is not safe to go home at this time. He is not at baseline. Concern for further injury if he were to go home. Patient is not in full [facility] setting. Reviewed with them vertebral fractures of lumbar region. Discussion: Appropriate for admission. Patient will need physical therapy case resolution specialistinstrumentation manager for patient's need and may transition to rehab physical therapy or full [facility]. I did review with patient and daughter and hospitalist, they all agree for admit. Diagnosis: Weakness/vertebral fracture Discharge Plan Departure Patient Disposition: Admitted as Observation Clinical Impression: Weakness, Lumbar vertebral fracture Admit Date/Time: 01/26/23 16:06 Admit Provider: Ned Drummond
[2023-01-25 11:34] LABS: Bacteria Urine None Seen; Culture Indicated Urine Cult Not Indicated; RBC Urine 1-5/HPF (0-5/HPF); Squamous Epithelial Cell Urine 0-1 /HPF (0-5/HPF); WBC Urine 1-5/HPF (0-5/HPF)
[2023-01-25 12:12] LABS: INR 1.2 (0.9-1.3); Prothrombin Time 13.5 SECONDS (10.1-12.7)
[2023-01-25 12:15] LABS: PTT Partial Thromboplastin Tim 29 SECONDS (26-36)
[2023-01-25 12:17] LABS: Alanine Aminotransferase 25 IU/L (<50); Albumin 3.9 g/dL (3.5-5.0); Albumin Globulin Ratio 1.1 (1.0-2.8); Alkaline Phosphatase 128 U/L (38-126); Aspartate Aminotransferase 19 IU/L (17-59); BUN Creatinine Ratio 16.5 (6-22); Bilirubin Total 0.8 mg/dL (0.2-1.3); Blood Urea Nitrogen 20 mg/dL (9-20); Carbon Dioxide 33 mmol/L (22-32); Chloride 100 mmol/L (98-107); Creatine Kinase 46 U/L (55-170); Estimated Glomerular Filt Rate 59 mL/min (>60); Globulin 3.5 g/dL (1.7-4.1); HEMOLYSIS < 15 (0-50); Lipase 38 U/L (23-300); Magnesium 2.3 mg/dL (1.6-2.3); Potassium 3.4 mmol/L (3.4-5.1); Sodium 139 mmol/L (137-145); Total Protein 7.4 g/dL (6.3-8.2)
[2023-01-25 12:28] LABS: Troponin I < 0.012 ng/mL (0.01-0.034)
[2023-01-25 12:30] LABS: Glucose 489 mg/dL (80-110)
[2023-01-25] MEDS: SODIUM CHLORIDE 0.9% 500 ML 1000 ML IV (14:01)
[2023-01-25 16:06] LABS: Ketones (Beta-Hydroxybutyrate) 0.26 mmol/L (<0.27)
--- NOTE | 2023-01-25 17:15 | PM.HP.1 ---
History of Present Illness History of Present Illness Date Patient Seen: 01/25/23 Time Patient Seen: 17:00 Chief complaint: GLF Narrative: Piero Murdock is an 82yo M with a PMH of diet-controlled DM2, obesity, recurrent UTI, HTN, and BPH who presents with recurrent falls. History obtained from patient's daughter. She says resides at [facility] and 4 days has fallen 8 times. He has had some worsening confusion, for example he called her his at one point. She notes he has diabetes but is not on metformin or insulin. He was taken recently to [place] ED where a CT scan of his head was done which was normal so he was sent home. No labs were done. She says he has had worsening neuropathy as well. He normally spends most of his time in a recliner or a wheelchair, but sometimes walks with a walker. Patient states his pain is controlled. Says he has had worsening weakness in his legs recently. In the ED patient found to have L2 and L5 endplate vertebral fractures. He was unable to walk without feeling too weak. BG was 489. PFSH Medical History E. coli urinary tract infection Gross hematuria Recurrent urinary tract infection Secondhand smoke exposure Social History household members: none Smoking Status: Never smoker alcohol intake: current Meds Home Medications and Allergies Home Medications Medication Instructions Recorded Confirmed Type amlodipine 5 mg tablet 5 mg PO DAILY 09/06/21 01/25/23 History furosemide 20 mg tablet 20 mg PO BID 09/06/21 01/25/23 History potassium chloride 20 mEq 20 meq PO DAILY 09/06/21 01/25/23 History tablet,extended release Allergies Allergy/AdvReac Type Severity Reaction Status Date / Time No Known Allergies Allergy Verified 01/25/23 10:35 Review of Systems Review of Systems Narrative: All other systems reviewed with the patient and are negative unless otherwise stated. Exam Vital Signs (past 8 hours): - 01/25/23 10:28 01/25/23 10:39 01/25/23 11:00 Temperature 99.5 F Pulse Rate 93 H 99 H 102 H Respiratory Rate 18 24 23 Blood Pressure 170/83 H Pulse Oximetry 93 93 93 Oxygen Delivery Method Room Air 01/25/23 11:01 01/25/23 11:01 01/25/23 11:30 Temperature Pulse Rate 103 H Respiratory Rate 16 Blood Pressure 196/93 H 213/103 H Pulse Oximetry 92 Oxygen Delivery Method 01/25/23 11:30 01/25/23 12:00 01/25/23 12:01 Temperature Pulse Rate 104 H 104 H Respiratory Rate 6 L Blood Pressure 222/95 H Pulse Oximetry 90 L 91 Oxygen Delivery Method 01/25/23 12:01 01/25/23 12:02 01/25/23 12:03 Temperature Pulse Rate 106 H 106 H Respiratory Rate 14 12 Blood Pressure 185/87 H Pulse Oximetry 90 L 90 L Oxygen Delivery Method 01/25/23 12:03 01/25/23 12:30 01/25/23 12:31 Temperature Pulse Rate 104 H 106 H Respiratory Rate 16 20 Blood Pressure 205/104 H Pulse Oximetry 91 93 Oxygen Delivery Method 01/25/23 12:31 01/25/23 13:00 01/25/23 13:16 Temperature Pulse Rate 105 H 100 H Respiratory Rate 24 Blood Pressure 216/101 H Pulse Oximetry 93 92 Oxygen Delivery Method 01/25/23 13:16 01/25/23 13:30 01/25/23 13:31 Temperature Pulse Rate 105 H 98 H 100 H Respiratory Rate Blood Pressure Pulse Oximetry 93 94 93 Oxygen Delivery Method 01/25/23 13:31 01/25/23 14:00 01/25/23 14:01 Temperature Pulse Rate 101 H Respiratory Rate Blood Pressure 166/94 H 196/106 H Pulse Oximetry 93 Oxygen Delivery Method 01/25/23 14:01 01/25/23 14:30 01/25/23 14:30 Temperature Pulse Rate 101 H 104 H Respiratory Rate Blood Pressure 187/113 H Pulse Oximetry 92 94 Oxygen Delivery Method 01/25/23 15:00 01/25/23 15:00 01/25/23 15:30 Temperature Pulse Rate 103 H Respiratory Rate Blood Pressure 186/119 H 199/99 H Pulse Oximetry 93 Oxygen Delivery Method 01/25/23 15:30 01/25/23 16:00 01/25/23 16:08 Temperature Pulse Rate 93 H 107 H 137 H Respiratory Rate Blood Pressure Pulse Oximetry Oxygen Delivery Method 01/25/23 16:08 01/25/23 16:11 01/25/23 16:11 Temperature Pulse Rate 102 H Respiratory Rate 20 Blood Pressure 187/154 H 210/101 H Pulse Oximetry 94 Oxygen Delivery Method 01/25/23 16:30 Temperature Pulse Rate 108 H Respiratory Rate 23 Blood Pressure Pulse Oximetry 94 Oxygen Delivery Method Oxygen Delivery Method Room Air Narrative Exam Narrative: GEN: no acute distress HEENT: moist mucous membranes, PERRL NECK: trachea midline, no JVD CV: regular rate and rhythm, no murmurs PULM: clear bilaterally ABD: soft, nontender, nondistended, no organomegaly EXT: warm and well perfused with no edema NEURO: awake, alert, oriented x2, no focal deficits Objective Labs 01/25/23 10:31 01/25/23 12:00 Labs: Laboratory Results - last 24 hr 01/25/23 01/25/23 01/25/23 10:30 10:31 12:00 WBC 9.7 RBC 4.64 Hgb 14.4 Hct 42.2 MCV 91.0 MCH 31.1 MCHC 34.1 RDW 13.9 Plt Count 110 L Neut % (Auto) 87.2 H Lymph % (Auto) 5.2 L [place] % (Auto) 5.7 Eos % (Auto) 0.7 L Baso % (Auto) 1.2 Neut # (Auto) 8400 H Lymph # (Auto) 500 L [place] # (Auto) 600 Eos # (Auto) 100 Baso # (Auto) 100 PT 13.5 H INR 1.2 APTT 29 Sodium Potassium Chloride Carbon Dioxide BUN Creatinine Estimated GFR BUN/Creatinine Ratio Glucose Calcium Magnesium Total Bilirubin AST ALT Alkaline Phosphatase Total Creatine Kinase CK-MB (CK-2) CK-MB (CK-2) Rel Index Troponin I Total Protein Albumin Globulin Albumin/Globulin Ratio Lipase Urine RBC 1-5/hpf Urine WBC 1-5/hpf Ur Squamous Epith Cells 0-1 /hpf Urine Bacteria None seen Ur Culture Indicated? Cult not indicated Ketones 01/25/23 01/25/23 12:00 12:00 WBC RBC Hgb Hct MCV MCH MCHC RDW Plt Count Neut % (Auto) Lymph % (Auto) [place] % (Auto) Eos % (Auto) Baso % (Auto) Neut # (Auto) Lymph # (Auto) [place] # (Auto) Eos # (Auto) Baso # (Auto) PT INR APTT Sodium 139 Potassium 3.4 Chloride 100 Carbon Dioxide 33 H BUN 20 Creatinine 1.21 Estimated GFR 59 L BUN/Creatinine Ratio 16.5 Glucose 489 H* Calcium 9.0 Magnesium 2.3 Total Bilirubin 0.8 AST 19 ALT 25 Alkaline Phosphatase 128 H Total Creatine Kinase 46 L CK-MB (CK-2) TNP CK-MB (CK-2) Rel Index TNP Troponin I < 0.012 Total Protein 7.4 Albumin 3.9 Globulin 3.5 Albumin/Globulin Ratio 1.1 Lipase 38 Urine RBC Urine WBC Ur Squamous Epith Cells Urine Bacteria Ur Culture Indicated? Ketones 0.26 Assessment & Plan Assessment & Plan narrative: # recurrent falls and weakness, resulting in L2 and L5 endplate vertebral fractures -unclear etiology of falls and weakness, possibly deconditioning and advanced age -no surgical intervention needed for vertebral fracture -PT/OT evals -FOOD PREPARATION WORKER consult, will likely need SNF -check orthostatics q.shift -telemetry -oxycodone and Tylenol as needed for pain # mild confusion -patient normally mentally clear per daughter, but currently oriented x2 -perform SLUMS # hypertensive urgency -systolic blood pressures greater than 200 in ED -increase home amlodipine to 10 mg daily -labetalol IV as needed -tele as above # hyperglycemia -blood glucose 489 in ED, no history of diabetes -A1c pending -give 20 units of regular insulin and start sliding scale insulin -dietitian consult # lung nodule -1.6cm RUL nodule noted on CT chest -repeat [address] chest recommended # BPH -continue home Flomax Code status is DNR. COVID negative. DVT prophylaxis with Lovenox. Proxy is daughter Ruth. I have reviewed home meds and used all available resources to reconcile the home meds. This patient will be admitted as observation and will require less than 2 midnights of hospital time to treat falls and weakness.
[2023-01-25 17:30] LABS: COVID19 -Nasal RAPID Negative (Negative)
[2023-01-25] MEDS: POTASSIUM CHLORIDE 20 MEQ TAB PO (17:50)
[2023-01-25] MEDS: FUROSEMIDE 20 MG TABLET PO (17:50)
[2023-01-25] MEDS: AMLODIPINE 5 MG TABLET 10 MG PO (17:51)
[2023-01-25] MEDS: OXYCODONE IR 5 MG TABLET PO (17:54)
[2023-01-25] MEDS: ACETAMINOPHEN 325 MG TABLET 650 MG PO (17:54)
[2023-01-25] MEDS: INSULIN REGULAR 100 UNIT/ML 3 ML VIAL 10 UNIT SUBCUT (17:56)
[2023-01-25] MEDS: INSULIN REGULAR 100 UNIT/ML 3 ML VIAL SUBCUT ×2 (17:58→21:45)
[2023-01-25 18:04] LABS: TSH w/ Reflex to FT4 1.71 uIU/mL (0.47-4.68)
--- NOTE | 2023-01-25 18:43 | PC.NURSE ---
Patient arrived from ED at approximately 1720 this evening. He is A&OX1, pleasant. Daughter at bedside [facility], providing history. Patient reports back pain 5/10 (per daughter this is what he Always says) Evening BG 319. Patient given 17 units regular insulin per orders. He eats appoximately 75% of meal. He is incontinent of a large urine x1. BP on arrival 151\112, and he is given amlodipine as scheduled. He is oriented to room and items placed within reach. Telemetry placed. Bed alarm on. Continuous monitoring. Per daughter he has a polst at [facility] and is a DNR.
[2023-01-25] MEDS: MELATONIN 3 MG TABLET 6 MG PO (21:19)
[2023-01-25] MEDS: SENNOSIDES 8.6 MG TABLET PO (21:19)
[2023-01-25] MEDS: TAMSULOSIN 0.4 MG CAPSULE PO (21:19)
[2023-01-26 04:00] VITALS: BP 146/77; PULSE 70; RESP 17; TEMP 36.6; O2SAT 97
[2023-01-26 05:32] LABS: Labcorp Hemoglobin (Hb) A1c 10.7 % (4.8-5.6)
[2023-01-26 05:50] LABS: Add Manual Diff / Slide Review NO; Basophils Absolute Auto 100 /uL (0-100); Basophils Percent Auto 0.7 % (0-2); Eosinophils Absolute Auto 300 /uL (0-450); Eosinophils Percent Auto 2.8 % (2-4); Hematocrit 40.2 % (41-53); Hemoglobin 13.8 g/dL (13.5-17.5); Lymphocytes Absolute Auto 1000 /uL (1100-4500); Lymphocytes Percent Auto 11.3 % (25-40); Mean Corpuscular HGB Conc 34.4 % (30-36); Mean Corpuscular Hemoglobin 30.9 PG (26-34); Mean Corpuscular Volume 89.8 fL (80-100); Monocytes Absolute Auto 800 /uL (0-900); Monocytes Percent Auto 8.5 % (3-14); Neutrophils Absolute Auto 6900 /uL (1500-7000); Neutrophils Percent Auto 76.7 % (50-75); Platelet Count 119 X10^3/uL (150-400); Red Blood Cell Count 4.47 X10^6/uL (4.5-5.9); Red Cell Distribution Width 13.7 % (11.6-14.8)
[2023-01-26 06:55] LABS: BUN Creatinine Ratio 17.8 (6-22); Blood Urea Nitrogen 19 mg/dL (9-20); Calcium 8.5 mg/dL (8.4-10.2); Carbon Dioxide 31 mmol/L (22-32); Chloride 104 mmol/L (98-107); Estimated Glomerular Filt Rate > 60 mL/min (>60); Glucose 206 mg/dL (80-110); HEMOLYSIS 35 (0-50); Potassium 3.1 mmol/L (3.4-5.1); Sodium 140 mmol/L (137-145)
[2023-01-26 08:00] VITALS: BP 154/92; PULSE 74; RESP 18; TEMP 36.8; O2SAT 94
--- NOTE | 2023-01-26 08:27 | PM.PN.1 ---
Subjective Subjective Interval history: Brain MRI obtained today showed small subacute stroke of basal ganglia. This was relayed to patient and daughter. ASA, plavix and statin started. PT recommending SNF. SLUMS 11 today. Exam Vital Signs (past 8 hours): - 01/26/23 04:00 Temperature 97.9 F Pulse Rate 70 Respiratory Rate 17 Blood Pressure 146/77 H Pulse Oximetry 97 Oxygen Flow Rate 0 Oxygen Delivery Method Room Air Oxygen Flow Rate 0 Narrative Exam Narrative: GEN: no acute distress HEENT: moist mucous membranes, PERRL NECK: trachea midline, no JVD CV: regular rate and rhythm, no murmurs PULM: clear bilaterally ABD: soft, nontender, nondistended, no organomegaly EXT: warm and well perfused with no edema NEURO: awake, alert, oriented x2, LE weakness Objective Labs 01/26/23 04:45 01/26/23 04:45 Labs: Laboratory Results - last 24 hr 01/25/23 01/25/23 01/25/23 10:30 10:31 10:31 WBC 9.7 RBC 4.64 Hgb 14.4 Hct 42.2 MCV 91.0 MCH 31.1 MCHC 34.1 RDW 13.9 Plt Count 110 L Neut % (Auto) 87.2 H Lymph % (Auto) 5.2 L [place] % (Auto) 5.7 Eos % (Auto) 0.7 L Baso % (Auto) 1.2 Neut # (Auto) 8400 H Lymph # (Auto) 500 L [place] # (Auto) 600 Eos # (Auto) 100 Baso # (Auto) 100 PT INR APTT Sodium Potassium Chloride Carbon Dioxide BUN Creatinine Estimated GFR BUN/Creatinine Ratio Glucose Hgb A1c (Ref Lab) 10.7 H Calcium Magnesium Total Bilirubin AST ALT Alkaline Phosphatase Total Creatine Kinase CK-MB (CK-2) CK-MB (CK-2) Rel Index Troponin I Total Protein Albumin Globulin Albumin/Globulin Ratio Lipase TSH Urine RBC 1-5/hpf Urine WBC 1-5/hpf Ur Squamous Epith Cells 0-1 /hpf Urine Bacteria None seen Ur Culture Indicated? Cult not indicated Ketones SARS-CoV-2 (PCR) 01/25/23 01/25/23 01/25/23 12:00 12:00 12:00 WBC RBC Hgb Hct MCV MCH MCHC RDW Plt Count Neut % (Auto) Lymph % (Auto) [place] % (Auto) Eos % (Auto) Baso % (Auto) Neut # (Auto) Lymph # (Auto) [place] # (Auto) Eos # (Auto) Baso # (Auto) PT 13.5 H INR 1.2 APTT 29 Sodium 139 Potassium 3.4 Chloride 100 Carbon Dioxide 33 H BUN 20 Creatinine 1.21 Estimated GFR 59 L BUN/Creatinine Ratio 16.5 Glucose 489 H* Hgb A1c (Ref Lab) Calcium 9.0 Magnesium 2.3 Total Bilirubin 0.8 AST 19 ALT 25 Alkaline Phosphatase 128 H Total Creatine Kinase 46 L CK-MB (CK-2) TNP CK-MB (CK-2) Rel Index TNP Troponin I < 0.012 Total Protein 7.4 Albumin 3.9 Globulin 3.5 Albumin/Globulin Ratio 1.1 Lipase 38 TSH Urine RBC Urine WBC Ur Squamous Epith Cells Urine Bacteria Ur Culture Indicated? Ketones 0.26 SARS-CoV-2 (PCR) 01/25/23 01/25/23 01/26/23 12:00 17:02 04:45 WBC 9.0 RBC 4.47 L Hgb 13.8 Hct 40.2 L MCV 89.8 MCH 30.9 MCHC 34.4 RDW 13.7 Plt Count 119 L Neut % (Auto) 76.7 H Lymph % (Auto) 11.3 L [place] % (Auto) 8.5 Eos % (Auto) 2.8 Baso % (Auto) 0.7 Neut # (Auto) 6900 Lymph # (Auto) 1000 L [place] # (Auto) 800 Eos # (Auto) 300 Baso # (Auto) 100 PT INR APTT Sodium Potassium Chloride Carbon Dioxide BUN Creatinine Estimated GFR BUN/Creatinine Ratio Glucose Hgb A1c (Ref Lab) Calcium Magnesium Total Bilirubin AST ALT Alkaline Phosphatase Total Creatine Kinase CK-MB (CK-2) CK-MB (CK-2) Rel Index Troponin I Total Protein Albumin Globulin Albumin/Globulin Ratio Lipase TSH 1.71 Urine RBC Urine WBC Ur Squamous Epith Cells Urine Bacteria Ur Culture Indicated? Ketones SARS-CoV-2 (PCR) Negative 01/26/23 04:45 WBC RBC Hgb Hct MCV MCH MCHC RDW Plt Count Neut % (Auto) Lymph % (Auto) [place] % (Auto) Eos % (Auto) Baso % (Auto) Neut # (Auto) Lymph # (Auto) [place] # (Auto) Eos # (Auto) Baso # (Auto) PT INR APTT Sodium 140 Potassium 3.1 L Chloride 104 Carbon Dioxide 31 BUN 19 Creatinine 1.07 Estimated GFR > 60 BUN/Creatinine Ratio 17.8 Glucose 206 H D Hgb A1c (Ref Lab) Calcium 8.5 Magnesium Total Bilirubin AST ALT Alkaline Phosphatase Total Creatine Kinase CK-MB (CK-2) CK-MB (CK-2) Rel Index Troponin I Total Protein Albumin Globulin Albumin/Globulin Ratio Lipase TSH Urine RBC Urine WBC Ur Squamous Epith Cells Urine Bacteria Ur Culture Indicated? Ketones SARS-CoV-2 (PCR) PFSH Medical History E. coli urinary tract infection Gross hematuria Recurrent urinary tract infection Secondhand smoke exposure Social History household members: none Smoking Status: Never smoker alcohol intake: current Assessment & Plan Assessment & Plan narrative: # subacute stroke of right basal ganglia -per MRI brain on 01/26, likely explains falls and sudden onset symptoms of confusion with SLUMS of 11 -start ASA plus plavix x21 days -start lipitor 80mg nightly -tele -will need SNF per PT # recurrent falls and weakness, resulting in L2 and L5 endplate vertebral fractures -likely secondary to subacute stroke -no surgical intervention needed for vertebral fracture -PT/OT evals -UROLOGY TEACHER consult, will likely need SNF -check orthostatics q.shift -telemetry -oxycodone and Tylenol as needed for pain # mild confusion -patient normally mentally clear per daughter, but currently oriented x2 -due to subacute stroke -SLUMS on 01/26 a score of 11/30 # hypertensive urgency -systolic blood pressures greater than 200 in ED -increased home amlodipine to 10 mg daily -labetalol IV as needed -tele as above # DM2 -blood glucose 489 in ED, history of diet controlled DM2 -A1c pending -lantus 15 units BID plus high dose SSI -dietitian consult # lung nodule -1.6cm RUL nodule noted on CT chest -repeat [address] chest recommended # BPH -continue home Flomax Code status is DNR. COVID negative. DVT prophylaxis with Lovenox. Proxy is daughter Ruth. Dispo: Pending SNF placement. Quality VTE Deep Vein Thrombosis/Pulmonary Embolism Present on Admission: No
[2023-01-26] MEDS: INSULIN REGULAR 100 UNIT/ML 3 ML VIAL SUBCUT ×4 (08:29→21:41)
[2023-01-26] MEDS: AMLODIPINE 5 MG TABLET 10 MG PO (08:57)
[2023-01-26] MEDS: POTASSIUM CHLORIDE 20 MEQ TAB 40 MEQ PO ×2 (08:58→15:39)
[2023-01-26] MEDS: ENOXAPARIN 40 MG/0.4 ML SYRINGE SUBCUT (08:58)
[2023-01-26] MEDS: FUROSEMIDE 20 MG TABLET PO (08:58)
[2023-01-26] MEDS: INSULIN GLARGINE 100 UNIT/ML 3ML PEN 15 UNIT SUBCUT ×2 (08:59→21:40)
[2023-01-26] MEDS: OXYCODONE IR 5 MG TABLET PO ×2 (09:52→13:52)
[2023-01-26 11:04] VITALS: BP 142/93; BP 153/87; PULSE 90; PULSE 97
--- NOTE | 2023-01-26 11:27 | OT.IP.EVAL ---
Current Diagnoses Unspecified fracture of unspecified lumbar vertebra, initial encounter for closed fracture (01/25/23) Past Medical History E. coli urinary tract infection Gross hematuria Recurrent urinary tract infection Secondhand smoke exposure Occupational Therapy Inpatient Evaluation/Re-Eval M1 PT/OT-IP Prior Functional Status Start: 01/26/23 12:31 Freq: NEEDED Status: Active Protocol: Document 01/26/23 13:06 CGR (Rec: 01/26/23 13:20 R [id number]) Medical Review Prior Functional Status Medical History Reviewed Yes Communication Pt is an effective verbal communicator. Mobility and Gait Indep with FWW and w/c for ambulation in his apartment and to dining room. Occasional assist with bed mobility. Activities of Daily Living and IADL's Typically indep with bathing and dressing, with occasional assist from staff. Assist with shoes/socks. Eats meals in the dining room prepared by staff. Social History Household Members none Living Arrangements Assisted Living Number of Floors (Floors) One Floor Number of Stairs To Enter/Railing? no stairs Home Environment High Toilet,Walk in Shower, Built-In Shower Seat Home Equipment Front Wheel Walker,Manual Wheelchair,Grab Bars Near Toilet Employment Status Retired Additional Social History Comment Resident of [facility]. Daughter reported patient has had several recent falls, and has been requiring extra help for mobility and ADL's recently. Has a kitchenette in his apartment but doesn't typically use it. M2 OT-IP Current Condition Start: 01/26/23 13:05 Freq: Status: Active Protocol: Document 01/26/23 13:06 CGR (Rec: 01/26/23 13:20 R [id number]) Occupational Therapy Current Condition Current Condition Evaluation Date 01/26/23 Treatment Diagnosis L2-l5 vertebral fx, HTN, falls Diagnosis Onset Date 01/25/23 Post Operative Precautions Lumbar Precautions Log Roll,No Twisting M3 OT- IP Subjective and Pain Start: 01/26/23 13:05 Freq: Status: Active Protocol: Document 01/26/23 13:06 CGR (Rec: 01/26/23 13:20 R [id number]) OT- Subjective Occupational Therapy Visit Type Type Initial Evaluation Visit Start Time 10:43 Visit Stop Time 12:27 Total Visit Minutes 44 Notes P.T. already in room when OT entered. Partial co-eval Occupational Therapy Visit Comments Patient Comments My back hurts. OT Pain Assessment Pain When Pain Assessed At Rest Pain Present Pain Present Pain Reported Location Back Intensity 5 Scale Used Numeric (0 - 10) Management Techniques Distraction,Modification of Treatment,Re-positioning M4 OT- IP ADL's Start: 01/26/23 13:05 Freq: Status: Active Protocol: Document 01/26/23 13:06 CGR (Rec: 01/26/23 13:20 CGR [id number]) OT [id number] Comments OT Self-Feeding Comments not meal time OT ADL-Grooming Comments OT Grooming Comments not performed OT ADL-Oral Care Comments Oral Care Comments not performed, pt states he performed this AM OT ADL-Dressing General Eval Lower Body Dressing Ability Total Assistance Areas Needing Assistance Socks Comments OT Dressing Comments Pt states that he has assist with LB dressing at baseline. OT ADL-Toileting General Evaluation Toileting Ability Minimal Assistance Devices Toileting Assistive Devices Urinal Comments OT Toileting Comments Pt was unable to stand for toielting with urinal but attempted to urinate seated holding the urinal in place without assist. Pt was able to void when therapist held urinal in place for pt. OT ADL-Bathing Comments OT Bathing Comments not performed M5 OT- IP IADL's Start: 01/26/23 13:05 Freq: Status: Active Protocol: Document 01/26/23 13:06 CGR (Rec: 01/26/23 13:20 CGR [id number]) OT-Instrumental Activities of Daily Living Deficits IADL Deficits Identified Deficits Home Safety Awareness Awareness of Need for Assistance at Home Decreased Awareness Ability to Problem Solve Emergency Unable to Problem Solve Situations Medication Management Medication Management Caregiver Administers Money Management Money Management Caregiver Provides Assistance Meal Preparation Meal Preparation Caregiver Provides Assist Quality Assurance Qa Lab Technician Quality Assurance Qa Lab Technician Caregiver Provides Assist Driving Driving Comments Pt does not drive at baseline. M6 OT- IP Functional Cognition Start: 01/26/23 13:05 Freq: Status: Active Protocol: Document 01/26/23 13:06 CGR (Rec: 01/26/23 13:20 CGR [id number]) Cognitive Factors Limiting Selfcare Function Cognitive Ability Level of Alertness Alert Patient Orientation Name,Birthday,Day of Week, Place,Situation Attention Span Ability Capable of Focused Attention, Capable of Sustained Attention Ability to Follow Commands Able to Follow One Step Commands with Increased Time, Able to Follow One Step Commands with Repetition Cognitive Tests [facility] Pt participated in the [facility] on this date (01/26/23) with the following results. He scored an 11/30 and was able to answer the day of the week, the year (although he missed the year eariler), the state we are in, he named 9 animals in 1 minute, remembered 1/5 objects, stated numbers backwards for a 2 and 3 number sequesnce, was able to put an x in the triangle, and answered 2 of the 4 listening comprehension questions. His exam will be scanned into his file for future reference. Cognitive Comments Cognitive Assessment Comments Pt presents with a score of 11 /30 indicating dementia per the [facility] scoring sheet. OT- Vision and Hearing OT- Hearing Assessment OT- Hearing Assessment WFL OT- Vision Assessment Visual Acuity Glasses For Reading Visual Attentiveness WFL Occular Pursuits WFL Visual Convergence WFL M7 OT- IP Mobility and Balance Start: 01/26/23 13:05 Freq: Status: Active Protocol: Document 01/26/23 13:06 CGR (Rec: 01/26/23 13:20 CGR [id number]) OT- Bed Mobility Assessment Rolling Type of Rolling Log Rolling Level of Assistance Moderate Assistance Scooting Scooting to Edge of Bed Maximum Assistance OT-Transfer Assessment Sit to and From Stand Sit to and from Stand Minimal Assistance Transfers Transfer Ability Moderate Assistance Technique Transfer Destination Bed,Chair Transfer Technique Stand Step Pivot Devices Transfer Assistive Devices Gait Belt,Front Wheeled Walker Comments Mobility Comments Pt is implusive with his movement and sat before the chair was positioned and locked. Pt was able to ambulate ~3 steps. OT- Balance Assessment Sitting Balance and Reactions Static Sitting Balance Ability Good Dynamic Sitting Balance Ability Good M8 OT- IP Objective Assessments Start: 01/26/23 13:05 Freq: Status: Active Protocol: Document 01/26/23 13:06 CGR (Rec: 01/26/23 13:20 CGR [id number]) OT Gross Range of Motion Upper Extremity Range of Motion Assessment Within Functional Limits OT Strength Upper Extremity Strength Assessment Within Functional Limits Comments Strength Comments grossly 5-/5 OT- Coordination Assessment Upper Extremity Finger to Nose Test Within Functional Limits Finger Tapping Test Within Functional Limits OT-Muscle Tone Assessment Muscle Tone WNL Yes OT Sensation Assessment Edema Edema Absent M9 OT- IP Assessment and Plan Start: 05/11/23 13:05 Freq: Status: Active Protocol: Document 01/26/23 13:06 CGR (Rec: 01/26/23 13:20 CGR [id number]) OT Summary Assessment and Plan Potential Rehabilitation Potential Good Analytic Complexity at Evaluation Moderate Summary OT Impairments Pain,Balance,Functional Cognition,Functional Mobility, Grooming,Dressing,Toileting, Bathing,Toilet Transfers, Shower Transfers,Activity Tolerance Progress Towards Goals Slow Progress due to Medical Issues,Slow Progress due to Cognition Assessment Summary Pt presents as a moderate complexity evaluation s/p admit for falls and increased confusion. Pt scored an 11/30 on the SLUMS and needed min to max a for mobility around the room and bed. Pt will benefit from continued therapy services. Recommend d/c to SNf . Goals Self-Feeding Goal Independent Grooming Goal Independent Dressing Goal Independent Toileting Goal Independent Bathing Goal Independent Toilet Transfer Goal Independent Shower Transfer Goal Independent Days to Meet Goals 30 Frequency of Treatment Frequency Of Treatment Once a Day Treatment Plan OT Treatment Plan ADL Training,Functional Cognition Training,Functional Mobility,Patient/Family Education,Discharge Planning Other Treatment Recommendations and Next ADLs at sink Treatment Focus Discharge Recommendations OT Discharge Recommendations SNF Rehab Transportation Needs at Discharge Wheelchair/Cabulance
--- NOTE | 2023-01-26 11:36 | DI.MRI.S_ITS ---
PROCEDURE: MR HEAD/BRAIN WO CON INDICATIONS: acute encephalopathy TECHNIQUE: Non-contrast axial T1 spin echo, axial T2 fast spin echo, sagittal and axial FLAIR, coronal T2 fast spin echo, axial gradient echo, axial diffusion and ADC through the brain. COMPARISON: [facility], CT, CT ANGIO HEAD AND NECK, 01/25/2023, 12:35. FINDINGS: Image quality: Excellent. CSF spaces: Ventricles appear symmetric in size and shape. Basal cisterns are patent. No extra-axial fluid collections. Brain: No intracranial bleeds or mass effects. There is cerebral volume loss for age. There are periventricular and deep white matter chronic small vessel ischemic changes. Brainstem appears normal. Diffusion-weighted images demonstrate a 4 mm focus of elevated signal intensity within the right medial basal ganglia which demonstrates low ADC map and mild FLAIR signal elevation. No chronic ischemic insults. Normal intravascular flow voids are present. Skull and face: Calvarial bone marrow is normal in signal. Orbits are normal. Sinuses: Sinuses and mastoids are clear. IMPRESSION: 1. Volume loss and small vessel ischemic disease. 2. Small subacute infarct within the right medial basal ganglia. Dictated by: Anca Camacho M.D. on 01/26/2023 at 15:21 Approved by: Anca Camacho M.D. on 01/26/2023 at 15:22
--- NOTE | 2023-01-26 12:29 | DIET.CONS2 ---
Dietary Inpatient Consultation Note Admission Date: 01/25/2023 16:39 DM educator to visit pt for nutrition education on Monday as pt to d/c with insulin. Diet: 01/25/23 Dinner Carbohydrate Consistent Diet Diet Modifications: Carbohydrate level: Small (2 CHO) Reflex DM orders: No Nutrition Percent Meal Consumed 75% 01/26/23 12:08 Percent Meal Consumed 50% 01/25/23 18:21 Percent Meal Consumed 50% 01/25/23 18:00 Electronically Signed by: Marry Buenrostro 01/26/23 12:29 Clinical Dietitian [address] [address]
--- NOTE | 2023-01-26 12:50 | PT.IIE ---
Current Diagnoses Unspecified fracture of unspecified lumbar vertebra, initial encounter for closed fracture (01/25/23) Medical History E. coli urinary tract infection Gross hematuria Recurrent urinary tract infection Secondhand smoke exposure Physical Therapy Inpatient Evaluation/Re-Eval M1 PT/OT-IP Prior Functional Status Start: 01/26/23 12:31 Freq: NEEDED Status: Active Protocol: Document 01/26/23 12:31 ES (Rec: 01/26/23 12:50 ES [id number]) Medical Review Prior Functional Status Medical History Reviewed Yes Mobility and Gait Indep with FWW and w/c for ambulation in his apartment and to dining room. Occasional assist with bed mobility. Activities of Daily Living and IADL's Typically indep with bathing and dressing, with occasional assist from staff. Assist with shoes/socks. Eats meals in the dining room prepared by staff. Social History Household Members none Living Arrangements Assisted Living Number of Floors (Floors) One Floor Home Environment High Toilet,Walk in Shower, Built-In Shower Seat Home Equipment Front Wheel Walker,Manual Wheelchair,Grab Bars Near Toilet Additional Social History Comment Resident of [facility]. Daughter reported patient has had several recent falls, and has been requiring extra help for mobility and ADL's recently. Has a kitchenette in his apartment but doesn't typically use it. M2 PT-IP Current Condition Start: 01/26/23 12:31 Freq: NEEDED Status: Active Protocol: Document 01/26/23 12:31 ES (Rec: 01/26/23 12:50 ES [id number]) Physical Therapy Current Condition Current Condition Evaluation Date 01/26/23 Treatment Diagnosis Repeated falls, L2 and L5 end plate fractures Onset Date 01/25/23 M3 PT-IP Subjective Start: 01/26/23 12:31 Freq: NEEDED Status: Active Protocol: Document 01/26/23 12:31 ES (Rec: 01/26/23 12:50 ES [id number]) Subjective Physical Therapy Visit Type Type Initial Evaluation Visit Start Time 09:34 Visit Stop Time 11:05 Total Visit Minutes 48 Notes Eval performed in two visits this AM; OT present during part of eval. Physical Therapy Visit Comments Patient Comments Patient alert in bed, family present. Patient reported his back has been quite sore. Patient agreeable to try working with PT, requesting to go to the bathroom. Therapy Pain Assessment Pain When Pain Assessed During Mobility Pain Present Pain Present Pain Reported Location Back Intensity 5 Scale Used Numeric (0 - 10) Description With Movement Pain Management Techniques Modification of Treatment,Re- positioning,Timing of Activity with Medications M4 PT-IP Mobility and Gait Start: 01/26/23 12:31 Freq: NEEDED Status: Active Protocol: Document 01/26/23 12:31 ES (Rec: 01/26/23 12:50 ES [id number]) PT-Bed Mobility Assessment Rolling Type of Rolling Log Rolling Level of Assist Moderate Assistance,1 Person Assistance Supine to Sit Supine to Sit Moderate Assistance,1 Person Assistance,Head of Bed Elevated,Bedrails Scooting Scooting to Edge of Bed Moderate Assistance PT-Transfer Assessment Sit to and From Stand Sit to and from Stand Moderate Assistance,2 Person Assistance Equipment Transfer Assistive Device Gait Belt,Front Wheeled Walker Orthotic/Prosthetic Devices or Brace: No Transfers Transfer Destination Chair Transfer Technique Ambulation, then chair placed behind patient Transfer Ability Level of Assist Minimal Assistance,2 Person Assistance Comments Mobility Comments Patient used urinal at EOB. Patient ambulated 3 ft then needed to sit quickly due to back pain so recliner was placed behind patient to sit. Patient impulsively sat into recliner. Gait Assessment Gait Gait Assistance Required: Minimum Assistance Distance (Feet) 3 Assistive Devices Assistive Device Gait Belt,Front Wheeled Walker Gait Deviations General Gait Pattern Antalgic,Decreased Stride Length,Decreased Feet Clearance,Flexed Trunk,Wide Based Gait Factors Limiting Gait Function Factors Limiting Gait Function Decreased Strength,Pain,Poor Balance,Poor Safety Awareness Comments Gait Comments Ambulated very slowly, limited distance due to pain. PT-Balance Assessment Sitting Balance and Reactions Static Sitting Balance Ability Fair Dynamic Sitting Balance Ability Fair Standing Balance and Reactions Static Standing Balance Ability Fair Dynamic Standing Balance Ability Fair Device Used FWW M5 PT-IP Objective Assessments Start: 01/26/23 12:31 Freq: NEEDED Status: Active Protocol: Document 01/26/23 12:31 ES (Rec: 01/26/23 12:50 ES [id number]) Orientation Orientation/Cognition Level of Alertness Alert Orientation Name,Day of Week,Place, Situation Language Function Ability No Deficits Noted Safety Awareness Decreased Safety Awareness Memory Description No Deficits Noted Gross Range of Motion Upper Extremity ROM Assessment Within Functional Limits Lower Extremity ROM Assessment Bilaterally Impaired Impairments Decreased hip and knee ROM B due to stiffness and pain Strength Upper Extremity Strength Assessment Within Functional Limits Lower Extremity Strength Assessment Bilaterally Impaired Comments Strength Comments BLE grossly 4-/5 M6 PT-IP Treatment Start: 01/26/23 12:31 Freq: NEEDED Status: Active Protocol: Document 01/26/23 12:31 ES (Rec: 01/26/23 12:50 ES [id number]) Physical Therapy Treatment Education Education Provided Precautions,Safety M7 PT-IP Assessment and Plan Start: 01/26/23 12:31 Freq: NEEDED Status: Active Protocol: Document 01/26/23 12:31 ES (Rec: 01/26/23 12:50 ES [id number]) PT Summary Assessment and Plan Potential Rehabilitation Potential Fair Status of Condition at Evaluation Evolving Summary Impairments Pain,ROM,Strength,Balance, Cognition,Bed Mobility, Transfers,Gait,Activity Tolerance Assessment Summary Patient is a 82 year old male who presents with impaired functional mobility primarily due to pain and weakness, as well as decreased safety awareness. He had poor tolerance for standing and walking, only making it 3 ft before needing to quickly sit. He is at high risk for falls. He will benefit from further skilled therapy to increase safety and independence with mobility. Recommend SNF for rehab to address this, as he currently requires increased assistance and is well below his baseline level of function . Goals Bed Mobility Goal Independent Transfer Goal Independent,Front Wheeled Walker Gait Goal Independent,Front Wheel Walker Gait Distance 25 Other Goals Patient will be able to propel manual w/c 100 ft indep. Patient will be able to perform log roll for supine to /from sit indep with HOB elevated to reduce back pain with bed mobility. Days to Meet Goals 7 Frequency of Treatment Frequency Of Treatment Once a Day Treatment Plan Physical Therapy Treatment Plan Bed Mobility Training,Transfer Training,Gait Training, Therapeutic Exercise,Balance Retraining,Discharge Planning, Hot or Cold Pack,Neuromuscular Re-ed,Manual Therapy Precautions Lumbar Precautions Log Roll,No Twisting,Limit Bending Weight Bearing Status Weight Bearing Status Weight Bear as Tolerated Recommendations To Nursing Amount of Assist Needed 2 Person Assist Discharge Recommendations PT Discharge Recommendations SNF Rehab Transportation Needs at Discharge Wheelchair/Cabulance
--- NOTE | 2023-01-26 13:30 | CM.DANOTE ---
Addendum entered by Yue Jaime R.N. 01/26/23 14:52: Just found out that patient has Medicare Advantage plan, [employer], was not reflected on original face sheet, for Dyana called back, is not contracted with [employer]. Called daughter back, and let her know that it was not noted on original face sheet that patient has [facility]. Let her know that patient could be covered under mcfp since he has the Medicare Advantage, does not need to be inpatient status, or stay 3 midnights. Will just depend upon how soon auth can be obtained. Let her know that [facility] is contracted, and can send referral. Will also send to Ghada Nichole. Have messages out to both Jenni and Taylor. Original Note: DCP: Case received, EMR reviewed and met with patient. Son, Hugh, was at bedside. Also, contacted daughter, Ruth Tovar, who is DPOA. Her number is: [phone]. Introduced self and role. Spoke to Analysis at [facility] nursing department chairperson as well. Was able to obtain information regarding patient's baseline activity level at his facility prior to admission. Patient is an 82 year old male who admitted yesterday afternoon to the care of the hospitalist team. PCP: Unknown at this time. Payer: confirmed: Medicare/[facility]. Patient came to the hospital via ambulance secondary to increased confusion and ground level falls. Notes indicate that this is not patient's normal behavior, he is normally alert and oriented. Patient uses walker and wheelchair at baseline, he lives at [facility] in [place]. Patient was admitted for falls and weakness resulting in L2 and L5 vertebral fractures. Spoke to assisted living nurse at [facility]. Stated that at his baseline, he is alert and oriented, uses a FWW, can walk short distances, otherwise, he comes to meals in wheelchair. 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 She indicated that they can't accept patient's back if they are hoier lift, or need extensive assist with transfers. Let her know that she will be updated. Met with patient and son, Hugh, at bedside. Confirmed that patient is under observation status, and that mcfp would not be covered. He is recommending calling daughter, Ruth. Confirmed that she is the DPOA. Spoke to Ruth. Let her know that patient is currently OBS, he will be having an MRI, let her know that this can affect status depending upon what MRI indicates. Let her know that to get patient to a mcfp facility, would be out of pocket cost. Gave her an idea of approximately how much it would be for patient to to go [facility]. Let her know other option is to reach out to Billie at [facility], to see the cost there as well, since they are a [facility] facility. Gave her Dyana and Billie's number. Let her know that patient could be ready for DC within next 24-48 hours, but depends upon MRI results. This DC Hospice Home Health Aide called Dyana at [facility], gave her the referral, and left Billie a message as well. P: DCP to work on skilled placement, will see how MRI results negative turner. If OBS, will be either [facility] private pay, or [facility]. Yue Jaime RN/Synthetic Cloth Binding Cutter Discharge Planning/Care Management CM Discharge Assessment Start: 01/26/23 13:25 Freq: Status: Active Protocol: Document 01/26/23 13:25 (Rec: 01/26/23 13:30 [id number]) Discharge Planning Assessment Assigned Care Manager Yue Jaime RN/Synthetic Cloth Binding Cutter Advance Directives? No History Provided By Patient,Medical Record Prior Living Arrangements Assisted Living Household Members none Type of transporation used prior to Relies on Others admit Facility Name Admitted From: [facility] Independent with ADL's Yes Is patient alert and oriented? Yes Needs Assistance With Bathing,Meal Prep,Managing Medications,Home Chores / Shopping Caregiver for Another No DME Already Rented / Owned Wheelchair,FWW / Walker Patient/Family Preference Retirement Facility Comment Most likely will need to go under private pay Barriers to Discharge Yes Comment Observation status, is two person transfer, assisted living can't manage. Discharge Plan Retirement Facility Transportation Arrangement Facility Referrals Initiated Retirement Additional Comment [facility], possibly [facility] If patient plan is SNF: Has PASSR been No: Have not yet completed completed? Medicare Choice List Provided Yes Medicare choice list reviewed on family electronic tablet with SNF/HH Preference [facility] or [facility] Has Agency SNF been contacted Yes Whiteboard Updated in Patient Room with Yes name and ext. # of Care Manager Review Status In Process Next Review Type Continued Stay Review
[2023-01-26 14:28] VITALS: BP 119/71; PULSE 67; RESP 16; TEMP 37.1; O2SAT 95
[2023-01-26 16:37] LABS: Cholesterol 185 mg/dL (140-199); HDL Cholesterol 32 mg/dL (40-60); LDL Cholesterol Calculated 122 mg/dL (<100); Triglycerides 157 mg/dL (35-150)
[2023-01-26] MEDS: ACETAMINOPHEN 325 MG TABLET 650 MG PO (16:44)
[2023-01-26] MEDS: CLOPIDOGREL 75 MG TABLET PO (16:44)
[2023-01-26] MEDS: ASPIRIN EC 81 MG TABLET PO (16:44)
[2023-01-26 20:10] VITALS: BP 143/85; PULSE 79; RESP 17; TEMP 36.4; O2SAT 94
[2023-01-26] MEDS: ATORVASTATIN 20 MG TABLET 80 MG PO (21:39)
[2023-01-26] MEDS: TAMSULOSIN 0.4 MG CAPSULE PO (21:40)
[2023-01-26 23:35] VITALS: BP 160/91; PULSE 86; RESP 17; TEMP 36.4; O2SAT 94
[2023-01-27 05:00] VITALS: BP 171/92; PULSE 76; RESP 18; TEMP 36.6; O2SAT 96
[2023-01-27 05:48] LABS: Add Manual Diff / Slide Review NO; Basophils Absolute Auto 100 /uL (0-100); Eosinophils Absolute Auto 200 /uL (0-450); Eosinophils Percent Auto 2.1 % (2-4); Hematocrit 40.5 % (41-53); Hemoglobin 14.2 g/dL (13.5-17.5); Lymphocytes Absolute Auto 1000 /uL (1100-4500); Lymphocytes Percent Auto 10.8 % (25-40); Mean Corpuscular HGB Conc 35.1 % (30-36); Mean Corpuscular Hemoglobin 31.3 PG (26-34); Mean Corpuscular Volume 89.1 fL (80-100); Monocytes Absolute Auto 800 /uL (0-900); Monocytes Percent Auto 8.7 % (3-14); Neutrophils Absolute Auto 6900 /uL (1500-7000); Neutrophils Percent Auto 77.4 % (50-75); Platelet Count 136 X10^3/uL (150-400); Red Blood Cell Count 4.54 X10^6/uL (4.5-5.9); Red Cell Distribution Width 13.8 % (11.6-14.8); White Blood Cell Count 8.9 X10^3/uL (4.5-11.0)
[2023-01-27 05:55] LABS: BUN Creatinine Ratio 21.1 (6-22); Blood Urea Nitrogen 20 mg/dL (9-20); Calcium 8.6 mg/dL (8.4-10.2); Carbon Dioxide 28 mmol/L (22-32); Chloride 105 mmol/L (98-107); Estimated Glomerular Filt Rate > 60 mL/min (>60); Glucose 264 mg/dL (80-110); HEMOLYSIS < 15 (0-50); Potassium 3.2 mmol/L (3.4-5.1); Sodium 140 mmol/L (137-145)
[2023-01-27 05:57] LABS: Magnesium 2.3 mg/dL (1.6-2.3)
--- NOTE | 2023-01-27 07:39 | CM.DPC ---
Addendum entered by Yue Jaime R.N. 01/27/23 12:06: Jenni at [facility] set up transportation for 1130 tomorrow. Updated nurse, Concepcion, she will put in COVID orders. This is pending that she gets the auth, but she feels confident that she should obtain. Will continue to update daughter. Daughter is in route to [place] by flight, but can leave messages on her cell phone. Have updated hospitalist, and PASSR was completed. Addendum entered by Yue Jaime R.N. 01/27/23 10:45: Jenni called back and asked if patient still needs placement. Let her know that there are no other accepting facilities as of yet. She is going to start working on auth, and may be able to take patient tomorrow. Called Rachna back and asked them to not initiate auth. Rose at [facility] also called back, and let her know that [facility] is working on this. Addendum entered by Yue Jaime R.N. 01/27/23 09:04: Spoke to Hannah at [facility], they do take [employer], not sure if they can get the auth before this weekend, but she will review. Spoke to daughter, Ruth, who has been updated. She is also willing to pay partially for patient to go to [facility] if needed. Have a call out to Billie as well, at [facility]. Addendum entered by Yue Jaime R.N. 01/27/23 08:03: Jenni called back, is reviewing patient, not sure that she can take this weekend, due to her other admissions, but will review. Asking Bárbara to fax referral to [facility] as well, and left a message with Billie at [facility] to see if she is contracted. Original Note: DCP Cont: Daughter, Ruth, left a message, was updated regarding MRI from hospitalist, noted new infarct. She is hoping for [facility]. Left Jenni another message, did not yet hear back from her, she has the referral. Taylor at [facility] has declined, due to limited amount that [employer] pays. Left a message with Piedad at [facility] as well, to see if they accept, but have not yet sent her referral. May also call Billie at [facility], did not yet hear back from her, to see if they may be contracted. Had initially left her a message yesterday, for it was thought that patient was straight Medicare. P: DCP to continue to work on plan, will follow up with Jenni at [facility], Piedad at [facility], and Billie at [facility]. Yue Jaime RN/Hand Packager
[2023-01-27 07:52] VITALS: BP 130/76; PULSE 80; RESP 17; TEMP 36.8; O2SAT 97
[2023-01-27] MEDS: POTASSIUM CHLORIDE 20 MEQ TAB 40 MEQ PO ×2 (08:20→17:07)
[2023-01-27] MEDS: FUROSEMIDE 20 MG TABLET PO (08:21)
[2023-01-27] MEDS: ASPIRIN EC 81 MG TABLET PO (08:21)
[2023-01-27] MEDS: CLOPIDOGREL 75 MG TABLET PO (08:21)
[2023-01-27] MEDS: AMLODIPINE 5 MG TABLET 10 MG PO (08:21)
[2023-01-27] MEDS: ACETAMINOPHEN 325 MG TABLET 650 MG PO (08:21)
[2023-01-27] MEDS: ENOXAPARIN 40 MG/0.4 ML SYRINGE SUBCUT (08:22)
[2023-01-27] MEDS: INSULIN GLARGINE 100 UNIT/ML 3ML PEN 15 UNIT SUBCUT (08:23)
[2023-01-27] MEDS: INSULIN REGULAR 100 UNIT/ML 3 ML VIAL SUBCUT ×2 (08:25→11:26)
[2023-01-27] MEDS: OXYCODONE IR 5 MG TABLET PO (11:19)
[2023-01-27] MEDS: polyethylene glycoL 3350 17 GM POWD.PACK PO (11:20)
--- NOTE | 2023-01-27 11:20 | OT.IP.TRT ---
Current Diagnoses Unspecified fracture of unspecified lumbar vertebra, initial encounter for closed fracture (01/25/23) Occupational Therapy Treatment Note M2 OT-IP Current Condition Start: 01/26/23 13:05 Freq: Status: Active Protocol: Document 01/26/23 13:06 CGR (Rec: 01/26/23 13:20 CGR [id number]) Occupational Therapy Current Condition Current Condition Evaluation Date 01/26/23 Treatment Diagnosis L2-l5 vertebral fx, HTN, falls Small subacute within right medial basal ganglia Diagnosis Onset Date 01/25/23 Post Operative Precautions Lumbar Precautions Log Roll,No Twisting M3 OT- IP Subjective and Pain Start: 01/26/23 13:05 Freq: Status: Active Protocol: Document 01/27/23 10:40 [facility] (Rec: 01/27/23 11:40 [facility] [id number]) OT- Subjective Occupational Therapy Visit Type Visit Start Time 10:40 Visit Stop Time 11:20 Total Visit Minutes 40 Occupational Therapy Visit Comments Patient Comments Pt agreed to get up to the recliner. Patient/Caregiver Goals TO go to skilled rehab. OT Pain Assessment Pain When Pain Assessed During Mobility Pain Present Pain Present Pain Reported M4 OT- IP ADL's Start: 01/26/23 13:05 Freq: Status: Active Protocol: Document 01/27/23 10:40 [facility] (Rec: 01/27/23 11:40 [facility] [id number]) OT [id number] Comments OT Self-Feeding Comments not meal time OT ADL-Grooming Comments OT Grooming Comments Pt states did already. OT ADL-Oral Care Comments Oral Care Comments Reminded pt best to spit into a cup to best follow his back precautions. Pt states able to do so this morning. OT ADL-Dressing General Eval Lower Body Dressing Ability Total Assistance Areas Needing Assistance Socks Comments OT Dressing Comments Able to show pt use of sock aid and able to stephan his sock with JUDAH, pt would benefit from a wide sock aid if doing so on his own. OT ADL-Toileting General Evaluation Toileting Ability Maximum Assistance Comments OT Toileting Comments Pt needing assist for brief change while standing with FWW . OT ADL-Bathing Comments OT Bathing Comments Sponge bath more appropriate at this time due to decreased balance. M5 OT- IP IADL's Start: 01/26/23 13:05 Freq: Status: Active Protocol: Document 01/26/23 13:06 CGR (Rec: 01/26/23 13:20 CGR [id number]) OT-Instrumental Activities of Daily Living Deficits IADL Deficits Identified Deficits Home Safety Awareness Awareness of Need for Assistance at Home Decreased Awareness Ability to Problem Solve Emergency Unable to Problem Solve Situations Medication Management Medication Management Caregiver Administers Money Management Money Management Caregiver Provides Assistance Meal Preparation Meal Preparation Caregiver Provides Assist System Programmer System Programmer Caregiver Provides Assist Driving Driving Comments Pt does not drive at baseline. M6 OT- IP Functional Cognition Start: 01/26/23 13:05 Freq: Status: Active Protocol: Document 01/27/23 10:40 [facility] (Rec: 01/27/23 11:40 [facility] [id number]) Cognitive Factors Limiting Selfcare Function Cognitive Ability Memory Description Short Term Impaired Cognitive Comments Cognitive Assessment Comments Pt is very cooperative and pleasant and able to follow commands for ADl and mobility needs. Pt needing cues to remember to keep his right arm forwards during log rolling and bed mobility needs. Pt will benefit from repetition and practice. Pt legs very weak and not able to stand up for very long and having to sit down when OT and nursing aid trying to put on a brief. M7 OT- IP Mobility and Balance Start: 01/26/23 13:05 Freq: Status: Active Protocol: Document 01/27/23 10:40 [facility] (Rec: 01/27/23 11:40 [facility] [id number]) OT- Bed Mobility Assessment Rolling Type of Rolling Log Rolling,Roll to Left Level of Assistance Minimal Assistance Supine to Sit Supine to Sit Assist Moderate Assistance Scooting Scooting to Edge of Bed Maximum Assistance OT-Transfer Assessment Sit to and From Stand Sit to and from Stand Moderate Assistance,Maximum Assistance Transfers Transfer Ability Moderate Assistance Technique Transfer Destination Bed,Chair Transfer Technique Stand Step Pivot Devices Transfer Assistive Devices Gait Belt,Front Wheeled Walker Comments Mobility Comments Pt needing from MODA to MAX A to stand and to be sure his feet are in place with the FWW . Transfer MODA X1 assist for balance and to guide the FWW. OT- Balance Assessment Sitting Balance and Reactions Static Sitting Balance Ability Good Dynamic Sitting Balance Ability Fair Standing Balance and Reactions Static Standing Balance Ability Poor Dynamic Standing Balance Ability Poor M8 OT- IP Objective Assessments Start: 01/26/23 13:05 Freq: Status: Active Protocol: Document 01/26/23 13:06 CGR (Rec: 01/26/23 13:20 CGR [id number]) OT Gross Range of Motion Upper Extremity Range of Motion Assessment Within Functional Limits OT Strength Upper Extremity Strength Assessment Within Functional Limits Comments Strength Comments grossly 5-/5 OT- Coordination Assessment Upper Extremity Finger to Nose Test Within Functional Limits Finger Tapping Test Within Functional Limits OT-Muscle Tone Assessment Muscle Tone WNL Yes OT Sensation Assessment Edema Edema Absent M9 OT- IP Assessment and Plan Start: 01/26/23 13:05 Freq: Status: Active Protocol: Document 01/27/23 10:40 [facility] (Rec: 01/27/23 11:40 [facility] [id number]) OT Summary Assessment and Plan Potential Rehabilitation Potential Good Analytic Complexity at Evaluation Moderate Summary OT Impairments Pain,Balance,Functional Cognition,Functional Mobility, Grooming,Dressing,Toileting, Bathing,Toilet Transfers, Shower Transfers,Activity Tolerance Progress Towards Goals Slow Progress due to Pain,Slow Progress due to Medical Issues,Slow Progress due to Activity Tolerance Assessment Summary Pt MOD complexity and main barriers are pain, decreased strength and balance. Pt would benefit from skilled rehab to work on incorporating back precaution techniques as pt had L2-L5 vertebral fx for ADL and mobility needs. MRI showed small subacute within right medial basal ganglia. Goals Self-Feeding Goal Independent Grooming Goal Independent Dressing Goal Minimal Assistance Toileting Goal Independent Bathing Goal Independent Toilet Transfer Goal Independent Days to Meet Goals 29 Frequency of Treatment Frequency Of Treatment Once a Day Treatment Plan OT Treatment Plan ADL Training,Functional Cognition Training,Functional Mobility,Patient/Family Education,Discharge Planning Other Treatment Recommendations and Next ADLs at sink Treatment Focus Discharge Recommendations OT Discharge Recommendations SNF Rehab Transportation Needs at Discharge Wheelchair/Cabulance
[2023-01-27 11:39] VITALS: BP 128/77; PULSE 82; RESP 16; TEMP 36.6; O2SAT 98
--- NOTE | 2023-01-27 13:18 | P.PN_ITS ---
Subjective Subjective Interval history: Patient says he feels better today. Awaiting SNF placement. Exam Vital Signs (past 8 hours): - 01/27/23 07:52 01/27/23 11:39 Temperature 98.2 F 97.9 F Pulse Rate 80 82 Respiratory Rate 17 16 Blood Pressure 130/76 128/77 Pulse Oximetry 97 98 Oxygen Flow Rate 0 0 Oxygen Delivery Method Room Air Oxygen Flow Rate 0 Narrative Exam Narrative: GEN: no acute distress HEENT: moist mucous membranes, PERRL NECK: trachea midline, no JVD CV: regular rate and rhythm, no murmurs PULM: clear bilaterally ABD: soft, nontender, nondistended, no organomegaly EXT: warm and well perfused with no edema NEURO: awake, alert, oriented x2, LE weakness Objective Labs 01/27/23 04:43 01/27/23 04:43 Labs: Laboratory Results - last 24 hr 01/26/23 01/27/23 01/27/23 04:45 04:43 04:43 WBC 8.9 RBC 4.54 Hgb 14.2 Hct 40.5 L MCV 89.1 MCH 31.3 MCHC 35.1 RDW 13.8 Plt Count 136 L Neut % (Auto) 77.4 H Lymph % (Auto) 10.8 L [place] % (Auto) 8.7 Eos % (Auto) 2.1 Baso % (Auto) 1.0 Neut # (Auto) 6900 Lymph # (Auto) 1000 L [place] # (Auto) 800 Eos # (Auto) 200 Baso # (Auto) 100 Sodium 140 Potassium 3.2 L Chloride 105 Carbon Dioxide 28 BUN 20 Creatinine 0.95 Estimated GFR > 60 BUN/Creatinine Ratio 21.1 Glucose 264 H Calcium 8.6 Magnesium Triglycerides 157 H Cholesterol 185 LDL Cholesterol, Calc 122 H HDL Cholesterol 32 L 01/27/23 04:43 WBC RBC Hgb Hct MCV MCH MCHC RDW Plt Count Neut % (Auto) Lymph % (Auto) [place] % (Auto) Eos % (Auto) Baso % (Auto) Neut # (Auto) Lymph # (Auto) [place] # (Auto) Eos # (Auto) Baso # (Auto) Sodium Potassium Chloride Carbon Dioxide BUN Creatinine Estimated GFR BUN/Creatinine Ratio Glucose Calcium Magnesium 2.3 Triglycerides Cholesterol LDL Cholesterol, Calc HDL Cholesterol PFSH Medical History E. coli urinary tract infection Gross hematuria Recurrent urinary tract infection Secondhand smoke exposure Social History household members: none Smoking Status: Never smoker alcohol intake: current Assessment & Plan Assessment & Plan narrative: # subacute stroke of right basal ganglia -per MRI brain on 01/26, likely explains falls and sudden onset symptoms of confusion with SLUMS of 11 -start ASA plus plavix x21 days -started lipitor 80mg nightly -tele -will need SNF per PT # recurrent falls and weakness, resulting in L2 and L5 endplate vertebral fractures -likely secondary to subacute stroke -no surgical intervention needed for vertebral fracture -PT/OT evals rec SNF -orthostatics negative -telemetry -oxycodone and Tylenol as needed for pain -will need script for oxy when goes to SNF # mild confusion -patient normally mentally clear per daughter, but currently oriented x2 -due to subacute stroke -SLUMS on 01/26 a score of 11/30 # hypertensive urgency -systolic blood pressures greater than 200 in ED -increased home amlodipine to 10 mg daily -labetalol IV as needed -tele as above # uncontrolled DM2 -blood glucose 489 in ED, history of diet controlled DM2 -A1c 10.7% -lantus increased to 20 units BID plus high dose SSI -diabetes education consulted -discharge to SNF with new script for insulin and metformin # lung nodule -1.6cm RUL nodule noted on CT chest -repeat [address] chest recommended # BPH -continue home Flomax Code status is DNR. COVID negative. DVT prophylaxis with Lovenox. Proxy is daughter Ruth. Dispo: SNF on 01/28. Quality VTE Deep Vein Thrombosis/Pulmonary Embolism Present on Admission: No
--- NOTE | 2023-01-27 13:43 | DIET.CONS ---
Dietary Consultation Note Admission Date: 01/26/2023 16:06 Assessment: 82 y/o M admitted with BG of 489mg/dl, h/o T2DM without medication management. HgA1c of 10.7%. RD consulted due to hyperglycemia. Has a daughter that seems to be supportive. Today his son is at bedside. Pt resides in assisted care. Plan for SNF at d/c. Will need insulin upon d/c per hospitalist. Plans to Metformin and Lantus at d/c. Pt reports high carb intake at meals with frequent juice and dessert options in addition to regular starches with meals. Diet certainly exacerbating hyperglycemia. Son has questions regarding continuous glucose monitoring, which Lester would likely be covered for with daily insulin therapy. Diet recall: B: eggs, toast, sausage/mcdonnell/ham, 12oz juice L: soup with crackers OR pasta Or fish and dessert (pie or cake) sn: nut bar or cookies or popcorn D: cheeseburger and dessert sn: nut bar Beverages: water, ice tea, juice Ht: 177.8 cm Wt: 109.5 kg BMI: 34.6 Last BM: 01/25/23 (01/25/23 17:38) MNA: 10 Mu Score: 18 Diet: 01/25/23 Dinner Carbohydrate Consistent Diet Diet Modifications: Carbohydrate level: Small (2 CHO) Reflex DM orders: No Nutrition Percent Meal Consumed 100% 01/27/23 13:38 Percent Meal Consumed 75% 01/27/23 09:51 Percent Meal Consumed 25% 01/26/23 18:44 Percent Meal Consumed 75% 01/26/23 13:44 Percent Meal Consumed 75% 01/26/23 12:08 Percent Meal Consumed 50% 01/25/23 18:21 Percent Meal Consumed 50% 01/25/23 18:00 Labs: RBC 4.54 X10^6/uL (4.5-5.9) 01/27/23 04:43 Hgb 14.2 g/dL (13.5-17.5) 01/27/23 04:43 Hct 40.5 % (41-53) L 01/27/23 04:43 Creatinine 0.95 mg/dL (0.66-1.25) 01/27/23 04:43 Nutrition Diagnosis: Food and nutrition knowledge deficit r/t no previous education aeb pt report and hgA1c of 10.7% and diet recall of excessive CHO Interventions: Education on impact of desserts and juice on BG Brief discussion on insulin injection and metformin Brief review of CGM Provided OP DM ed contact info for more support or questions regarding DM or CGM EER: 30-45g CHO per meal Monitoring/Evaluations: consult prn Electronically Signed by: Zoila Guerrero 01/27/23 13:43 Clinical Dietitian [address] [address]
--- NOTE | 2023-01-27 13:45 | PT.IPTN ---
Current Diagnoses Unspecified fracture of unspecified lumbar vertebra, initial encounter for closed fracture (01/26/23) Physical Therapy Treatment Note M2 PT-IP Current Condition Start: 01/26/23 12:31 Freq: NEEDED Status: Active Protocol: Document 01/26/23 12:31 ES (Rec: 01/26/23 12:50 ES [id number]) Physical Therapy Current Condition Current Condition Evaluation Date 01/26/23 Treatment Diagnosis Repeated falls, L2 and L5 end plate fractures Onset Date 01/25/23 M3 PT-IP Subjective Start: 01/26/23 12:31 Freq: NEEDED Status: Active Protocol: Document 01/27/23 14:47 TS (Rec: 01/27/23 15:21 TS [id number]) Subjective Physical Therapy Visit Type Type Treatment Note Visit Start Time 13:45 Visit Stop Time 14:14 Total Visit Minutes 29 Number of LEGAL REFEREE Visits 1 Physical Therapy Visit Comments Patient Comments Patient up in chair, son in room, reports no pain at rest, agreeable to PT. Therapy Pain Assessment Pain When Pain Assessed During Mobility Pain Present Pain Present Pain Reported M4 PT-IP Mobility and Gait Start: 01/26/23 12:31 Freq: NEEDED Status: Active Protocol: Document 01/27/23 14:47 TS (Rec: 01/27/23 15:21 TS [id number]) PT-Bed Mobility Assessment Sit to Supine Sit to Supine Minimal Assistance PT-Transfer Assessment Sit to and From Stand Sit to and from Stand Maximum Assistance Equipment Transfer Assistive Device Gait Belt,Front Wheeled Walker Orthotic/Prosthetic Devices or Brace: No Comments Mobility Comments Pt found resting in bed, agreeable to PT. Sit to stand from chair x2 MaxA, provided cues for weight forward, feet underneath and BUE support on arms of chair. Static standing x1 MaxA for posterior lean, provided cues for weight forward and upright posture, continues to lean posteriorly, required to sit in chair. Static standing 2nd attempt CGA, required decreased cueing for weight forward and upright posture. Pt ambulated around room CGA ~15' to other side of bed with slow step to gait and flexed posture, no signs of buckling or LOB. Sit to stand from bed MaxA, again provided cues for decreased posterior leaning. Sidestepped EOB x6 CGA, provided cues for step sequencing and FWW management. Sit to supine Sharon for LEs into bed. Pt was left in bed, son in room, call light nearby. Gait Assessment Gait Gait Assistance Required: Contact Guard Assist Distance (Feet) 15 Assistive Devices Assistive Device Gait Belt,Front Wheeled Walker Orthotic/Prosthetic Devices or Brace: No Gait Deviations General Gait Pattern Antalgic,Decreased Stride Length,Decreased Feet Clearance,Flexed Trunk,Wide Based Gait Factors Limiting Gait Function Factors Limiting Gait Function Decreased Strength,Pain,Poor Balance,Poor Safety Awareness Comments Gait Comments See mobility comments. PT-Balance Assessment Sitting Balance and Reactions Static Sitting Balance Ability Good Dynamic Sitting Balance Ability Fair Standing Balance and Reactions Static Standing Balance Ability Fair Dynamic Standing Balance Ability Poor Device Used FWW M5 PT-IP Objective Assessments Start: 01/26/23 12:31 Freq: NEEDED Status: Active Protocol: Document 01/26/23 12:31 ES (Rec: 01/26/23 12:50 ES [id number]) Orientation Orientation/Cognition Level of Alertness Alert Orientation Name,Day of Week,Place, Situation Language Function Ability No Deficits Noted Safety Awareness Decreased Safety Awareness Memory Description No Deficits Noted Gross Range of Motion Upper Extremity ROM Assessment Within Functional Limits Lower Extremity ROM Assessment Bilaterally Impaired Impairments Decreased hip and knee ROM B due to stiffness and pain Strength Upper Extremity Strength Assessment Within Functional Limits Lower Extremity Strength Assessment Bilaterally Impaired Comments Strength Comments BLE grossly 4-/5 M6 PT-IP Treatment Start: 01/26/23 12:31 Freq: NEEDED Status: Active Protocol: Document 01/27/23 14:47 TS (Rec: 01/27/23 15:21 TS [id number]) Physical Therapy Treatment Education Education Provided Precautions,Safety M7 PT-IP Assessment and Plan Start: 01/26/23 12:31 Freq: NEEDED Status: Active Protocol: Document 01/27/23 14:47 TS (Rec: 01/27/23 15:21 TS [id number]) PT Summary Assessment and Plan Potential Rehabilitation Potential Fair Summary Impairments Pain,ROM,Strength,Balance, Cognition,Bed Mobility, Transfers,Gait,Activity Tolerance Assessment Summary Pt is requiring MaxA x1 for sit to stands x3 this session. 1st attempt in standing required MaxA for balance and posterior leaning, required to sit down after ~1min. 2nd attempt in standing CGA for static standing balance, required decreased cueing for upright posture and weight forward. Pt progressed ambulation to 15' in room CGA, no buckling or LOB. PT continues to recommend SNF rehab to progress bed mobility , transfers and gait. Goals Bed Mobility Goal Independent Transfer Goal Independent,Front Wheeled Walker Gait Goal Independent,Front Wheel Walker Gait Distance 25 Other Goals Patient will be able to propel manual w/c 100 ft indep. Patient will be able to perform log roll for supine to /from sit indep with HOB elevated to reduce back pain with bed mobility. Days to Meet Goals 7 Frequency of Treatment Frequency Of Treatment Once a Day Treatment Plan Physical Therapy Treatment Plan Bed Mobility Training,Transfer Training,Gait Training, Therapeutic Exercise,Balance Retraining,Discharge Planning, Hot or Cold Pack,Neuromuscular Re-ed,Manual Therapy Precautions Lumbar Precautions Log Roll,No Twisting,Limit Bending Weight Bearing Status Weight Bearing Status Weight Bear as Tolerated Recommendations To Nursing Amount of Assist Needed 2 Person Assist Discharge Recommendations PT Discharge Recommendations SNF Rehab Transportation Needs at Discharge Wheelchair/Cabulance
[2023-01-27 15:03] LABS: COVID19 -Nasal RAPID Negative (Negative)
[2023-01-27 16:52] VITALS: BP 132/72; PULSE 78; RESP 17; TEMP 36.8; O2SAT 97
[2023-01-27] MEDS: INSULIN LISPRO 100 UNIT/ML 3ML VIAL SUBCUT ×2 (17:09→21:42)
[2023-01-27 19:47] VITALS: BP 125/92; PULSE 60; RESP 17; TEMP 37.1; O2SAT 95
[2023-01-27] MEDS: INSULIN GLARGINE 100 UNIT/ML 3ML PEN 20 UNIT SUBCUT (21:42)
[2023-01-27] MEDS: MELATONIN 3 MG TABLET 6 MG PO (21:43)
[2023-01-27] MEDS: ATORVASTATIN 20 MG TABLET 80 MG PO (21:43)
[2023-01-27] MEDS: TAMSULOSIN 0.4 MG CAPSULE PO (21:43)
[2023-01-28 04:10] VITALS: BP 169/92; PULSE 64; RESP 17; TEMP 35.8; O2SAT 95
[2023-01-28 06:30] LABS: Add Manual Diff / Slide Review NO; Basophils Absolute Auto 100 /uL (0-100); Basophils Percent Auto 1.2 % (0-2); Eosinophils Absolute Auto 300 /uL (0-450); Hematocrit 43.5 % (41-53); Hemoglobin 15.1 g/dL (13.5-17.5); Lymphocytes Absolute Auto 1300 /uL (1100-4500); Lymphocytes Percent Auto 15.7 % (25-40); Mean Corpuscular HGB Conc 34.7 % (30-36); Mean Corpuscular Hemoglobin 31.1 PG (26-34); Mean Corpuscular Volume 89.6 fL (80-100); Monocytes Absolute Auto 800 /uL (0-900); Monocytes Percent Auto 8.9 % (3-14); Neutrophils Absolute Auto 6000 /uL (1500-7000); Neutrophils Percent Auto 71.2 % (50-75); Platelet Count 164 X10^3/uL (150-400); Red Blood Cell Count 4.85 X10^6/uL (4.5-5.9); Red Cell Distribution Width 13.6 % (11.6-14.8); White Blood Cell Count 8.5 X10^3/uL (4.5-11.0)
[2023-01-28 06:42] LABS: BUN Creatinine Ratio 24.2 (6-22); Blood Urea Nitrogen 24 mg/dL (9-20); Calcium 8.9 mg/dL (8.4-10.2); Carbon Dioxide 27 mmol/L (22-32); Chloride 102 mmol/L (98-107); Estimated Glomerular Filt Rate > 60 mL/min (>60); Glucose 258 mg/dL (80-110); HEMOLYSIS < 15 (0-50); Potassium 3.7 mmol/L (3.4-5.1); Sodium 138 mmol/L (137-145)
[2023-01-28 06:44] LABS: Magnesium 2.2 mg/dL (1.6-2.3)
[2023-01-28 07:15] VITALS: BP 153/70; PULSE 90; RESP 18; TEMP 36.2; O2SAT 96
[2023-01-28] MEDS: INSULIN LISPRO 100 UNIT/ML 3ML VIAL SUBCUT (08:27)
[2023-01-28] MEDS: CLOPIDOGREL 75 MG TABLET PO (08:32)
[2023-01-28] MEDS: AMLODIPINE 5 MG TABLET 10 MG PO (08:32)
[2023-01-28] MEDS: POTASSIUM CHLORIDE 20 MEQ TAB 40 MEQ PO (08:33)
[2023-01-28] MEDS: FUROSEMIDE 20 MG TABLET PO (08:33)
[2023-01-28] MEDS: INSULIN GLARGINE 100 UNIT/ML 3ML PEN 20 UNIT SUBCUT (08:33)
[2023-01-28] MEDS: ASPIRIN EC 81 MG TABLET PO (08:33)
[2023-01-28] MEDS: ENOXAPARIN 40 MG/0.4 ML SYRINGE SUBCUT (08:36)
--- NOTE | 2023-01-28 10:12 | PM.DS.1 ---
History of Present Illness History of Present Illness Date Patient Seen: 01/28/23 Chief complaint: GLF Narrative: Patient having no new complaints and eager to go to [facility] in [place]. Is looking forward to improve his function. Discharge Providers Provider Date of admission: 01/26/23 16:06 Discharge Date: 01/28/23 Consults: 01/25/23 17:07 Consult to Occupational Therapy Evaluate & Treat Comment: Physician Instructions: Evaluate and treat Consult to Physical Therapy Evaluate & Treat Comment: Physician Instructions: Evaluate and Treat 01/25/23 17:10 Consult to Dietitian, Adult Urgent Comment: Reason For Exam: BG 489 on admission 01/25/23 17:24 Consult to [employer] - Product Steward Routine Comment: will likely need SNF Discharge provider: Leni Wetzel MD Summary Hospital Course Discharge Diagnosis: Subacute stroke of right basal ganglia Recurrent falls and weakness L2 and L5 endplate vertebral fractures Deconditioned state Mild confusion -possibly due to subacute stroke SLUMS = 11-possibly decreased due to subacute stroke Hypertensive urgency Hyperglycemia Type 2 diabetes Insulin dependent diabetes Hemoglobin A1c elevated to 10.7 Lung nodule needing monitoring by CT in 3 months BPH Hospital Course: Piero Murdock is an 82yo M with a PMH of diet-controlled DM2, obesity, recurrent UTI, HTN, and BPH who presented with recurrent falls. History was initially obtained from patient's daughter. Patient resides at [facility] and during 4 days has fallen 8 times prior to presentation.? He had some worsening confusion. Prior to admission, he had diabetes but is not on metformin or insulin. He was taken recently to [facility] ED where a CT scan of his head was done which was normal so he was sent home. No labs were done. However he continued to have worsening weakness in his legs and worsening neuropathy as well. On the current presentation to the ER, he was found to have L2 and L5 endplate vertebral fractures. He was unable to walk without feeling too weak. BG was 489. CTA and MRI confirmed subacute infarct in the right medial basal ganglia. PT and OT was provided and there was recommendation for a SNF for further rehabilitation. As well his diabetes was initially controlled with b.i.d. Lantus and sliding scale insulin and this will be transitioned to b.i.d. Lantus and metformin 1000 mg b.i.d. with diabetic diet. Patient was short distant ambulatory with standby assist at the time of discharge. Status at Discharge Cognitive/behavioral status at discharge: at baseline, oriented Functional status at discharge: independent ambulation Overall status at discharge: patient is progressing back to baseline Time Spent with Patient Time spent: Greater than 30 minutes Exam Vital Signs (past 8 hours): - 01/28/23 04:10 01/28/23 07:15 Temperature 96.4 F L 97.1 F L Pulse Rate 64 90 Respiratory Rate 17 18 Blood Pressure 169/92 H 153/70 H Pulse Oximetry 95 96 Oxygen Flow Rate 0 Oxygen Delivery Method Room Air Oxygen Flow Rate 0 Narrative Exam Narrative: GEN: no acute distress HEENT: moist mucous membranes, PERRL NECK: trachea midline, no JVD CV: regular rate and rhythm, no murmurs PULM: clear bilaterally ABD: soft, nontender, nondistended, no organomegaly EXT: warm and well perfused with no edema NEURO: awake, alert, oriented x2, LE weakness Objective Labs 01/28/23 06:00 01/28/23 06:00 Labs: Laboratory Results - last 24 hr 01/27/23 01/28/23 01/28/23 14:15 06:00 06:00 WBC 8.5 RBC 4.85 Hgb 15.1 Hct 43.5 MCV 89.6 MCH 31.1 MCHC 34.7 RDW 13.6 Plt Count 164 Neut % (Auto) 71.2 Lymph % (Auto) 15.7 L [place] % (Auto) 8.9 Eos % (Auto) 3.0 Baso % (Auto) 1.2 Neut # (Auto) 6000 Lymph # (Auto) 1300 [place] # (Auto) 800 Eos # (Auto) 300 Baso # (Auto) 100 Sodium 138 Potassium 3.7 Chloride 102 Carbon Dioxide 27 BUN 24 H Creatinine 0.99 Estimated GFR > 60 BUN/Creatinine Ratio 24.2 H Glucose 258 H Calcium 8.9 Magnesium SARS-CoV-2 (PCR) Negative 01/28/23 06:00 WBC RBC Hgb Hct MCV MCH MCHC RDW Plt Count Neut % (Auto) Lymph % (Auto) [place] % (Auto) Eos % (Auto) Baso % (Auto) Neut # (Auto) Lymph # (Auto) [place] # (Auto) Eos # (Auto) Baso # (Auto) Sodium Potassium Chloride Carbon Dioxide BUN Creatinine Estimated GFR BUN/Creatinine Ratio Glucose Calcium Magnesium 2.2 SARS-CoV-2 (PCR) [facility] Medical History E. coli urinary tract infection Gross hematuria Recurrent urinary tract infection Secondhand smoke exposure Social History household members: none Smoking Status: Never smoker alcohol intake: current Discharge Plan Discharge Plan Patient Disposition: SNF Transfer to: [facility], [facility] Discharge orders & Medications Prescriptions: New amlodipine [Norvasc] 5 mg Tablet 10 mg PO DAILY Qty: 30 0RF aspirin 81 mg Tablet,Delayed Release (Dr/Ec) 81 mg PO DAILY Qty: 30 0RF potassium chloride [Klor-Con M20] 20 mEq Tablet,Er Particles/Crystals 40 meq PO DAILY Qty: 30 0RF tamsulosin [Flomax] 0.4 mg Capsule 0.4 mg PO BEDTIME Qty: 30 0RF furosemide 20 mg Tablet 20 mg PO DAILY Qty: 30 0RF atorvastatin 20 mg Tablet 80 mg PO BEDTIME Qty: 120 0RF clopidogrel 75 mg Tablet 75 mg PO DAILY Qty: 20 0RF insulin glargine [Lantus Solostar U-100 Insulin] 100 unit/mL (3 mL) Insulin Pen 20 unit SUBCUT BID Qty: 15 0RF polyethylene glycol 3350 17 gram Powder In Packet 17 g PO DAILY PRN (Reason: Constipation) Qty: 14 0RF oxycodone 5 mg Tablet 5 mg PO Q4HR PRN (Reason: Pain, Moderate (4-6)) Qty: 15 0RF sennosides [senna] 8.6 mg Tablet 8.6 mg PO BID PRN (Reason: Constipation) Qty: 30 0RF metformin 1,000 mg tablet 1,000 mg PO BID Qty: 60 0RF Discontinued furosemide 20 mg tablet 20 mg PO BID amlodipine 5 mg tablet 5 mg PO DAILY potassium chloride 20 mEq tablet extended release 20 meq PO DAILY Visit Report/Discharge Packet Stand Alone Forms: Patient Portal/API Quality VTE Deep Vein Thrombosis/Pulmonary Embolism Present on Admission: No
--- NOTE | 2023-01-28 10:42 | CM.DPC ---
DCP Cont: Patient is discharging to [facility] today. Checked in with Jenni, confirmed that she received the auth at about 1700 yesterday, and confirmed transportation pick up driver at 1130. Called patient's daughter, Ruth, and left her an updated message, and gave her number to Jenni. Dr. Ramos completed orders, and signed them. Faxed over PASSR, orders, prescription, DC Summary, COVID results, and vaccination to [facility]. updated white board in main nurses station, as well as primary nurse, Sierra, and gave her main number for report. Patient is happy about going. P: Patient is discharging to [facility] today with pick up driver time of 1130. Yue Jaime, PATEL/Shirt Sorter
--- NOTE | 2023-01-28 12:19 | PC.NURSE ---
Pt A&Ox2, VSS, 2 person assist. Report given to Summer at [facility]. Discharge and transfer packet given to transporter. Pt assisted into wheelchair and belongings gathered. Discharged via wheelchair with ride from transporter at 1200.
== END 2023-01-28 12:00 | DRG 65 ==
LOC: ED 16:21 → AC 17:06
PROVIDERS: Admitting Provider Student in an Organized Health Care Education/Training Program; Emergency Provider Emergency Medicine; Referring Provider Emergency Medicine; Visit Provider Student in an Organized Health Care Education/Training Program
DX: I63.9 Cerebral infarction, unspecified (principal); S32.028A Other fracture of second lumbar vertebra, initial encounter for closed fracture; S32.058A Other fracture of fifth lumbar vertebra, initial encounter for closed fracture; R29.6 Repeated falls; I16.0 Hypertensive urgency; R91.1 Solitary pulmonary nodule; N40.0 Benign prostatic hyperplasia without lower urinary tract symptoms; E11.65 Type 2 diabetes mellitus with hyperglycemia; W19.XXXA Unspecified fall, initial encounter; Z20.822 Contact with and (suspected) exposure to COVID-19; Z66 Do not resuscitate
CPT/HCPCS: 36415; 70496; 70498; 70551; 71260; 74177; 80048; 80053; 80061; 81003; 81015; 82009; 82550; 82962; 83036; 83690; 83735; 84443; 84484; 85025; 85610; 85730; 87635; 93005; 97116; 97129; 97162; 97166; 97530; 97535; 99284; C9803; G0378; J1650; J1815; Q9967

== ENCOUNTER 2024-06-03 12:48 | Emergency (ER) | payer MEDICARE, SELFPAY ==
[2023-01-25 17:38] VITALS: BMI 34.6
[2024-06-03] VITALS (26 sets, daily range): BP systolic 113–177; BP diastolic 69–103; PULSE 65–110; RESP 18–22; TEMP 37.1; O2SAT 93–100; BMI 37.3
--- NOTE | 2024-06-03 12:58 | ED.BACK ---
HPI - Back Pain/Injury <Jas Larsenaubree, DO - Last Filed: 06/05/24 10:07> General Chief Complaint: Back Pain/Injury Stated Complaint: slid down wall/ worsening chronic back pain Time Seen by Provider: 06/03/24 12:53 History of Present Illness HPI Narrative: Patient 84-year-old male with past medical history of diabetes hypertension BPH recurrent falls neuropathy low back pain with history of L2 and L5 endplate vertebral fractures comes into the ED from facility with EMS for evaluation of low back pain. According to the patient yesterday he was using his walker felt like his legs were starting to give out like they ?normally do so he braced himself onto the wall and slowly slid down, states that he did fall onto his butt but denies any head strike. States that he was able to get up with some help and ambulate back to his normal baseline however he has had persistent low back pain since then. He denies any new numbness weakness tingling to his lower extremities states that he has baseline neuropathy therefore it is hard to distinguish any issues with his lower extremities, however he denies any bowel or urinary retention or incontinence. Patient states that the pain is only when he tries to move, states it feels ?tight. Related Data Home Medications Medication Instructions Recorded Confirmed acetaminophen 500 mg tablet 1,000 mg PO Q6H PRN pain / 06/03/24 06/03/24 alendronate 70 mg tablet 70 mg PO QWEEK 06/03/24 06/03/24 calcium carbonate 500 mg PO DAILY 06/03/24 06/03/24 cholecalciferol (vitamin D3) 25 25 mcg PO DAILY 06/03/24 06/03/24 mcg (1,000 unit) capsule clobetasol 0.05 % topical ointment 1 applic topical DAILY PRN Rash 06/03/24 06/03/24 cyclobenzaprine 5 mg tablet 5 mg PO 3XD PRN Muscle Spasm 06/03/24 06/03/24 furosemide 80 mg tablet 80 mg PO DAILY 06/03/24 06/03/24 ibuprofen 600 mg tablet 600 mg PO Q6H PRN Pain (Scale 06/03/24 06/03/24 Score 4-6) ibuprofen-diphenhydramine citrate 2 cap PO BEDTIME 06/03/24 06/03/24 200 mg-38 mg tablet (Advil PM) insulin glargine 100 unit/mL (3 15 unit SUBCUT QAM 06/03/24 06/03/24 mL) subcutaneous pen (Lantus Solostar U-100 Insulin) nystatin 100,000 unit/gram topical 1 applic topical BID PRN Rash 06/03/24 06/03/24 cream psyllium husk 0.4 gram capsule 0.4 g PO BEDTIME 06/03/24 06/03/24 (Metamucil) Previous Rx's Medication Instructions Recorded amlodipine 5 mg tablet (Norvasc) 10 mg (2 x 5 mg) PO DAILY #30 tabs 01/28/23 aspirin 81 mg tablet,delayed 81 mg PO DAILY #30 tabs 01/28/23 release atorvastatin 20 mg tablet 80 mg (4 x 20 mg) PO BEDTIME #120 01/28/23 tabs clopidogrel 75 mg tablet 75 mg PO DAILY #20 tabs 01/28/23 oxycodone 5 mg tablet 5 mg PO Q4HR PRN Pain, Moderate 01/28/23 (4-6) #15 tabs polyethylene glycol 3350 17 gram 17 g PO DAILY PRN Constipation #14 01/28/23 oral powder packet ea potassium chloride 20 mEq 40 meq (2 x 20 mEq) PO DAILY #30 01/28/23 tablet,extended tabs release(part/cryst) (Klor-Con M) sennosides 8.6 mg tablet (senna) 8.6 mg PO BID PRN Constipation #30 01/28/23 tabs tamsulosin 0.4 mg capsule (Flomax) 0.4 mg PO BEDTIME #30 caps 01/28/23 Allergies Allergy/AdvReac Type Severity Reaction Status Date / Time No Known Allergies Allergy Verified 06/03/24 18:25 Review of Systems <Jas Atkins, - Last Filed: 06/05/24 10:07> Review of Systems Narrative: HEENT: Denies headache, eye drainage, eye irritation, head trauma, sore throat, voice change Cardiovascular: Denies any chest pain, palpitations, shortness of breath, tachycardia Respiratory: Denies any shortness of breath, cough, wheeze, stridor GI/: Denies any abdominal pain, nausea, vomiting, diarrhea, bright red blood per rectum, melanotic stools, urinary frequency, urinary retention, dysuria, hematuria MSK: Positive low back pain Skin: Denies any rashes, lesions, discoloration Neuro: Denies any headache, lightheadedness, dizziness, fainting, weakness Psych: Denies SI/HI Patient History <Jas Atkins DO - Last Filed: 06/05/24 10:07> Medical History E. coli urinary tract infection Gross hematuria Recurrent urinary tract infection Secondhand smoke exposure Social History household members: none Smoking Status: Never smoker alcohol intake: current Smoking Status: Never smoker alcohol intake frequency: a few times a week Alcohol type: hard liquor Substance Use Type: does not use Exam <Jas Atkins DO - Last Filed: 06/05/24 10:07> Narrative Exam Narrative: General: Cooperative, comfortable, well-developed, not in acute distress HEENT: Normocephalic, atraumatic, PERRLA, normal sclera, eyelids normal, Neck: Active full range of motion, atraumatic Chest: Normal to inspection, negative crepitus, no overlying erythema ecchymosis Respiratory: Normal respiratory effort, not in acute respiratory distress, clear to auscultation bilaterally negative cough, wheeze, tachypnea, rhonchi, rales Cardiology: Regular rate rhythm negative gallop, murmur, rubs GI/: Normal to inspection, soft, nonrigid, no tenderness to palpation, exam deferred MSK: Patient with chronic venous stasis noted to the lower extremities, with chronic lymphedema but palpable pulses neurovascularly intact. Patient without any tenderness to palpation of the midline cervical spine, Skin: No rashes lesions noted Neuro: Alert awake oriented x3, moves all 4 extremities spontaneously, cranial nerves intact, able to answer all questions appropriately follows commands appropriately Psych: Cooperative, negative suicidal or homicidal ideations Initial Vital Signs Initial Vital Signs: Vital Signs Pulse Rate 85 06/03/24 12:50 Pulse Oximetry 94 06/03/24 12:50 <Timo Nobles, DO - Last Filed: 06/07/24 06:58> Initial Vital Signs Initial Vital Signs: Vital Signs Pulse Rate 85 06/03/24 12:50 Pulse Oximetry 94 06/03/24 12:50 <Monica Flowers, DO - Last Filed: 06/05/24 07:06> Initial Vital Signs Initial Vital Signs: Vital Signs Pulse Rate 85 06/03/24 12:50 Pulse Oximetry 94 06/03/24 12:50 Course <Jas Atkins DO - Last Filed: 06/05/24 10:07> Orders Ordered: Discontinued Medications Acetaminophen (Acetaminophen 325 Mg Tablet) 975 mg PO Q6HR PRN PRN Reason: Pain, Moderate (4-6) Amlodipine Besylate (Amlodipine 5 Mg Tablet) 5 mg PO DAILY [facility] Last Admin: 06/04/24 08:25 Dose: 5 mg Documented By: MPO Aspirin (Aspirin Ec 81 Mg Tablet) 81 mg PO DAILY [facility] Last Admin: 06/04/24 08:26 Dose: 81 mg Documented By: MPO Atorvastatin Calcium (Atorvastatin 20 Mg Tablet) 80 mg PO BEDTIME [facility] Last Admin: 06/03/24 21:18 Dose: 80 mg Documented By: SB Clopidogrel Bisulfate (Clopidogrel 75 Mg Tablet) 75 mg PO DAILY [facility] Last Admin: 06/04/24 08:25 Dose: 75 mg Documented By: MPO Diazepam (Diazepam 2 Mg Tablet) 2 mg PO NOW ONE Stop: 06/03/24 13:00 Last Admin: 06/03/24 13:13 Dose: 2 mg Documented By: AMV Furosemide (Furosemide 40 Mg Tablet) 80 mg PO DAILY [facility] Last Admin: 06/04/24 08:28 Dose: 80 mg Documented By: MPO Ibuprofen (Ibuprofen 400 Mg Tablet) 800 mg PO NOW ONE Stop: 06/03/24 13:01 Last Admin: 06/03/24 13:13 Dose: 800 mg Documented By: AMV Ibuprofen (Ibuprofen 600 Mg Tablet) 600 mg PO Q6H PRN PRN Reason: Pain, Moderate (4-6) Insulin Glargine (Insulin Glargine 100 Unit/Ml 3ml Pen) 15 unit SUBCUT DAILY [facility] Last Admin: 06/04/24 09:04 Dose: Not Given Documented By: Admin: 06/04/24 06:35 Dose: 15 unit Documented By: LAURO Co-signed By: JANETTE Insulin Glargine (Insulin Glargine 100 Unit/Ml 3ml Pen) 15 unit SUBCUT DAILY [facility] Naloxone HCl (Naloxone 0.4 Mg/Ml Vial) 0.2 mg IV Q2MIN PRN PRN Reason: Opiate Reversal Oxycodone HCl (Oxycodone Ir 5 Mg Tablet) 5 mg PO Q4H PRN PRN Reason: Pain, Severe (7-10) Tamsulosin HCl (Tamsulosin 0.4 Mg Capsule) 0.4 mg PO BEDTIME [facility] Last Admin: 06/03/24 21:18 Dose: 0.4 mg Documented By: SB Vital Signs Vital signs: Vital Signs - 8 hr 06/04/24 06:27 06/04/24 06:29 06/04/24 06:29 Temperature Pulse Rate 67 Respiratory Rate Blood Pressure 159/96 H Pulse Oximetry 93 93 Oxygen Delivery Method 06/04/24 06:32 06/04/24 08:47 06/04/24 08:48 Temperature 98.4 F Pulse Rate 75 Respiratory Rate 17 Blood Pressure 159/96 H 162/106 H Pulse Oximetry 98 96 Oxygen Delivery Method Room Air 06/04/24 08:48 06/04/24 09:59 06/04/24 10:00 Temperature Pulse Rate 97 H 102 H Respiratory Rate Blood Pressure 144/77 H Pulse Oximetry 96 93 Oxygen Delivery Method 06/04/24 10:00 Temperature Pulse Rate 102 H Respiratory Rate Blood Pressure Pulse Oximetry 94 Oxygen Delivery Method <Timo Nobles, DO - Last Filed: 06/07/24 06:58> Orders Ordered: Discontinued Medications Acetaminophen (Acetaminophen 325 Mg Tablet) 975 mg PO Q6HR PRN PRN Reason: Pain, Moderate (4-6) Amlodipine Besylate (Amlodipine 5 Mg Tablet) 5 mg PO DAILY [facility] Last Admin: 06/04/24 08:25 Dose: 5 mg Documented By: MPO Aspirin (Aspirin Ec 81 Mg Tablet) 81 mg PO DAILY [facility] Last Admin: 06/04/24 08:26 Dose: 81 mg Documented By: MPO Atorvastatin Calcium (Atorvastatin 20 Mg Tablet) 80 mg PO BEDTIME [facility] Last Admin: 06/03/24 21:18 Dose: 80 mg Documented By: SB Clopidogrel Bisulfate (Clopidogrel 75 Mg Tablet) 75 mg PO DAILY [facility] Last Admin: 06/04/24 08:25 Dose: 75 mg Documented By: MPO Diazepam (Diazepam 2 Mg Tablet) 2 mg PO NOW ONE Stop: 06/03/24 13:00 Last Admin: 06/03/24 13:13 Dose: 2 mg Documented By: AMV Furosemide (Furosemide 40 Mg Tablet) 80 mg PO DAILY [facility] Last Admin: 06/04/24 08:28 Dose: 80 mg Documented By: TAMIKO Ibuprofen (Ibuprofen 400 Mg Tablet) 800 mg PO NOW ONE Stop: 06/03/24 13:01 Last Admin: 06/03/24 13:13 Dose: 800 mg Documented By: AIMEE Ibuprofen (Ibuprofen 600 Mg Tablet) 600 mg PO Q6H PRN PRN Reason: Pain, Moderate (4-6) Insulin Glargine (Insulin Glargine 100 Unit/Ml 3ml Pen) 15 unit SUBCUT DAILY [facility] Last Admin: 06/04/24 09:04 Dose: Not Given Documented By: Admin: 06/04/24 06:35 Dose: 15 unit Documented By: LAURO Co-signed By: JANETTE Insulin Glargine (Insulin Glargine 100 Unit/Ml 3ml Pen) 15 unit SUBCUT DAILY [facility] Naloxone HCl (Naloxone 0.4 Mg/Ml Vial) 0.2 mg IV Q2MIN PRN PRN Reason: Opiate Reversal Oxycodone HCl (Oxycodone Ir 5 Mg Tablet) 5 mg PO Q4H PRN PRN Reason: Pain, Severe (7-10) Tamsulosin HCl (Tamsulosin 0.4 Mg Capsule) 0.4 mg PO BEDTIME [facility] Last Admin: 06/03/24 21:18 Dose: 0.4 mg Documented By: SB Vital Signs Vital signs: Vital Signs - 8 hr 06/04/24 06:27 06/04/24 06:29 06/04/24 06:29 Temperature Pulse Rate 67 Respiratory Rate Blood Pressure 159/96 H Pulse Oximetry 93 93 Oxygen Delivery Method 06/04/24 06:32 06/04/24 08:47 06/04/24 08:48 Temperature 98.4 F Pulse Rate 75 Respiratory Rate 17 Blood Pressure 159/96 H 162/106 H Pulse Oximetry 98 96 Oxygen Delivery Method Room Air 06/04/24 08:48 06/04/24 09:59 06/04/24 10:00 Temperature Pulse Rate 97 H 102 H Respiratory Rate Blood Pressure 144/77 H Pulse Oximetry 96 93 Oxygen Delivery Method 06/04/24 10:00 Temperature Pulse Rate 102 H Respiratory Rate Blood Pressure Pulse Oximetry 94 Oxygen Delivery Method <Monica Flowers DO - Last Filed: 06/05/24 07:06> Orders Ordered: Discontinued Medications Acetaminophen (Acetaminophen 325 Mg Tablet) 975 mg PO Q6HR PRN PRN Reason: Pain, Moderate (4-6) Amlodipine Besylate (Amlodipine 5 Mg Tablet) 5 mg PO DAILY [facility] Last Admin: 06/04/24 08:25 Dose: 5 mg Documented By: MPO Aspirin (Aspirin Ec 81 Mg Tablet) 81 mg PO DAILY [facility] Last Admin: 06/04/24 08:26 Dose: 81 mg Documented By: MPO Atorvastatin Calcium (Atorvastatin 20 Mg Tablet) 80 mg PO BEDTIME [facility] Last Admin: 06/03/24 21:18 Dose: 80 mg Documented By: SB Clopidogrel Bisulfate (Clopidogrel 75 Mg Tablet) 75 mg PO DAILY [facility] Last Admin: 06/04/24 08:25 Dose: 75 mg Documented By: MPO Diazepam (Diazepam 2 Mg Tablet) 2 mg PO NOW ONE Stop: 06/03/24 13:00 Last Admin: 06/03/24 13:13 Dose: 2 mg Documented By: AMV Furosemide (Furosemide 40 Mg Tablet) 80 mg PO DAILY [facility] Last Admin: 06/04/24 08:28 Dose: 80 mg Documented By: TAMIKO Ibuprofen (Ibuprofen 400 Mg Tablet) 800 mg PO NOW ONE Stop: 06/03/24 13:01 Last Admin: 06/03/24 13:13 Dose: 800 mg Documented By: AMV Ibuprofen (Ibuprofen 600 Mg Tablet) 600 mg PO Q6H PRN PRN Reason: Pain, Moderate (4-6) Insulin Glargine (Insulin Glargine 100 Unit/Ml 3ml Pen) 15 unit SUBCUT DAILY [facility] Last Admin: 06/04/24 09:04 Dose: Not Given Documented By: Admin: 06/04/24 06:35 Dose: 15 unit Documented By: LAURO Co-signed By: JANETTE Insulin Glargine (Insulin Glargine 100 Unit/Ml 3ml Pen) 15 unit SUBCUT DAILY [facility] Naloxone HCl (Naloxone 0.4 Mg/Ml Vial) 0.2 mg IV Q2MIN PRN PRN Reason: Opiate Reversal Oxycodone HCl (Oxycodone Ir 5 Mg Tablet) 5 mg PO Q4H PRN PRN Reason: Pain, Severe (7-10) Tamsulosin HCl (Tamsulosin 0.4 Mg Capsule) 0.4 mg PO BEDTIME [facility] Last Admin: 06/03/24 21:18 Dose: 0.4 mg Documented By: SB Vital Signs Vital signs: Vital Signs - 8 hr 06/04/24 06:27 06/04/24 06:29 06/04/24 06:29 Temperature Pulse Rate 67 Respiratory Rate Blood Pressure 159/96 H Pulse Oximetry 93 93 Oxygen Delivery Method 06/04/24 06:32 06/04/24 08:47 06/04/24 08:48 Temperature 98.4 F Pulse Rate 75 Respiratory Rate 17 Blood Pressure 159/96 H 162/106 H Pulse Oximetry 98 96 Oxygen Delivery Method Room Air 06/04/24 08:48 06/04/24 09:59 06/04/24 10:00 Temperature Pulse Rate 97 H 102 H Respiratory Rate Blood Pressure 144/77 H Pulse Oximetry 96 93 Oxygen Delivery Method 06/04/24 10:00 Temperature Pulse Rate 102 H Respiratory Rate Blood Pressure Pulse Oximetry 94 Oxygen Delivery Method MDM - Back Pain/Injury <Jas Atkins DO - Last Filed: 06/05/24 10:07> Differential Diagnosis Differential diagnosis: Likely lumbar radiculopathy, sciatica, strain of lumbar region and other (Lumbar fracture) Condition is:: Improved Chronic Condition is having:: Mild excerbation Medical Records Attestation: I reviewed the patient's medical records. Lab Data Attestation: I reviewed the patient's lab results. 06/04/24 07:35 06/04/24 07:35 Labs: Lab Results 06/04/24 Range/Units 07:35 WBC 8.8 (4.5-11.0) X10^3/uL RBC 4.49 L (4.5-5.9) X10^6/uL Hgb 14.4 (13.5-17.5) g/dL Hct 41.8 (41-53) % MCV 93.1 (80-100) fL MCH 32.0 (26-34) PG MCHC 34.3 (30-36) % RDW 13.6 (11.6-14.8) % Plt Count 153 (150-400) X10^3/uL Neut % (Auto) 75.2 H (50-75) % Lymph % (Auto) 11.3 L (25-40) % [place] % (Auto) 9.3 (3-14) % Eos % (Auto) 3.5 (2-4) % Baso % (Auto) 0.7 (0-2) % Neut # (Auto) 6600 (8304-9974) /uL Lymph # (Auto) 1000 L (4861-6371) /uL [place] # (Auto) 800 (0-900) /uL Eos # (Auto) 300 (0-450) /uL Baso # (Auto) 100 (0-100) /uL Sodium 137 (137-145) mmol/L Potassium 3.5 (3.4-5.1) mmol/L Chloride 106 (98-107) mmol/L Carbon Dioxide 25 (22-32) mmol/L BUN 18 (9-20) mg/dL Creatinine 1.01 (0.66-1.25) mg/dL Estimated GFR > 60 (>60) mL/min BUN/Creatinine Ratio 17.8 (6-22) Glucose 170 H (80-110) mg/dL Calcium 8.7 (8.4-10.2) mg/dL Point of Care Testing Glucose POC [address]- Lumbar: Radiologist's Impression: [address] [address] [address] Scan Report Signed Patient: Piero Murdock MR#: [id number] : 1940 Acct:[id number] Age/Sex: 84 / M Date of Service: 06/03/24 Loc: ED Accession Number: [id number] Procedure: CT lumbar spine wo con Ordering Provider: Jas Atkins D.O. PROCEDURE: CT LUMBAR SPINE WO CON INDICATIONS: fall yesterday, history of low back pain TECHNIQUE: Noncontrast 3 mm thick sections acquired from the T12 level to the sacrum. Sagittal and coronal reformats were constructed. For radiation dose reduction, the following was used: automated exposure control. COMPARISON: Prior x-ray lumbar spine May 28, 2024, x-ray lumbar spine March 12, 2024. No prior reports available. FINDINGS: Image quality: Excellent. Bones: Allowing for differences in technique there has been no significant change in the suspected unylxfko-di-udxbxii compression fractures throughout the lumbar spine most notably at L2 with 90% height loss, L3 with up to approximately 50% height loss. Mild 3 mm retropulsion indents the anterior thecal sac at L2 without central stenosis the AP dimension of the canal measures approximately 1 cm. Findings may represent opjys-dc-nniwedg fractures with persistent lucent fracture lines and mild paravertebral edema at these levels. Suspected chronic compression fractures of the superior endplates of T12, L1, L5 relatively unchanged. Mild left-sided retroperitoneal edema anterior to the left iliopsoas muscle with mild asymmetric enlargement of the muscle body suggests left iliopsoas muscle injury/strain. Moderate diffuse osteopenia unchanged. Multilevel degenerative changes are noted with disc space narrowing, osteophytes, broad-based posterior disc bulges and circumferential and facet hypertrophic changes most notably at L1-2, L2-3, L3-4, L4-5 with suspected moderate bilateral neural foraminal narrowing at these levels. Mild degenerative changes bilateral sacroiliac joints without CT evidence of sacral fracture. Moderate calcifications of the aorta without CT evidence of aneurysm. 7 mm nonobstructing left renal calculus inferior pole. No hydronephrosis. IMPRESSION: No significant change in suspected pbmkxwcv-jq-hezojqb compression fractures throughout the lumbar spine most notably at L2, L3. If indicated kyphoplasty/vertebroplasty could be considered. Mild 3 mm retropulsion indents the anterior thecal sac at L2. Findings may represent hmgkm-zg-iorfiak fractures. Suspected chronic compression fractures of the superior endplates of T12, L1, L5 relatively unchanged. Mild left-sided retroperitoneal edema anterior to the left iliopsoas muscle with mild asymmetric enlargement of the muscle body suggests left muscle injury/strain. Moderate diffuse osteopenia unchanged. Multilevel degenerative changes most notably at L1-2, L2-3, L3-4, L4-5 with suspected moderate bilateral neural foraminal narrowing. 7 mm nonobstructing left renal calculus inferior pole. No hydronephrosis. Other suspected chronic findings as discussed above. Follow-up suggested. If symptoms persist or worsen, MRI lumbar spine could be performed. Results discussed with Dr. Jas Aktins 06/03/2024 at 1:25 p.m. [facility] Narrative Medical decision making narrative: Patient is a 84-year-old male diabetes hypertension BPH recurrent falls neuropathy low back pain with history of L2 and L5 endplate vertebral fractures comes into the ED from facility with EMS for evaluation of low back pain. Here the patient had significant improvement after administration of Valium. CT scan showing no acute fractures showing more subacute to chronic fractures. Patient without any neurological deficits, had discussion with patient and daughter at bedside they are having concerns of being discharged back to the assisted living due the fact that he has recurrent falls and daughter states that he will require higher level of care. Social work consulted. 1331: Had discussion with Dr. Moy of Radiology, he states that there does appear to be subacute on chronic compression fractures of L2/L3 with no canal stenosis 1800: Patient was signed out to Dr. Nobles, patient has been evaluated by social work job titles, the patient and family have elected to do private pay, patient will require stay overnight until placement in the a.m. for rehab center. Ordered patient's home medications/daily medications. <Timo Nobles DO - Last Filed: 06/07/24 06:58> Lab Data Labs: Lab Results 06/04/24 Range/Units 07:35 WBC 8.8 (4.5-11.0) X10^3/uL RBC 4.49 L (4.5-5.9) X10^6/uL Hgb 14.4 (13.5-17.5) g/dL Hct 41.8 (41-53) % MCV 93.1 (80-100) fL MCH 32.0 (26-34) PG MCHC 34.3 (30-36) % RDW 13.6 (11.6-14.8) % Plt Count 153 (150-400) X10^3/uL Neut % (Auto) 75.2 H (50-75) % Lymph % (Auto) 11.3 L (25-40) % [place] % (Auto) 9.3 (3-14) % Eos % (Auto) 3.5 (2-4) % Baso % (Auto) 0.7 (0-2) % Neut # (Auto) 6600 (8873-1879) /uL Lymph # (Auto) 1000 L (8115-5293) /uL [place] # (Auto) 800 (0-900) /uL Eos # (Auto) 300 (0-450) /uL Baso # (Auto) 100 (0-100) /uL Sodium 137 (137-145) mmol/L Potassium 3.5 (3.4-5.1) mmol/L Chloride 106 (98-107) mmol/L Carbon Dioxide 25 (22-32) mmol/L BUN 18 (9-20) mg/dL Creatinine 1.01 (0.66-1.25) mg/dL Estimated GFR > 60 (>60) mL/min BUN/Creatinine Ratio 17.8 (6-22) Glucose 170 H (80-110) mg/dL Calcium 8.7 (8.4-10.2) mg/dL Point of Care Testing Glucose POC 150 MDM Narrative Medical decision making narrative: Patient is a 84-year-old male diabetes hypertension BPH recurrent falls neuropathy low back pain with history of L2 and L5 endplate vertebral fractures comes into the ED from facility with EMS for evaluation of low back pain. Here the patient had significant improvement after administration of Valium. CT scan showing no acute fractures showing more subacute to chronic fractures. Patient without any neurological deficits, had discussion with patient and daughter at bedside they are having concerns of being discharged back to the assisted living due the fact that he has recurrent falls and daughter states that he will require higher level of care. Social work consulted. 1331: Had discussion with Dr. Moy of Radiology, he states that there does appear to be subacute on chronic compression fractures of L2/L3 with no canal stenosis 1800: Patient was signed out to Dr. Nobles, patient has been evaluated by social work job titles, the patient and family have elected to do private pay, patient will require stay overnight until placement in the a.m. for rehab center. Ordered patient's home medications/daily medications. Dr nobles: Received turned over. Patient has been stable overnight. He was received his night medications. Care turned over today provider to continue to follow up until disposition. <Monica Flowers, - Last Filed: 06/05/24 07:06> Lab Data Labs: Lab Results 06/04/24 Range/Units 07:35 WBC 8.8 (4.5-11.0) X10^3/uL RBC 4.49 L (4.5-5.9) X10^6/uL Hgb 14.4 (13.5-17.5) g/dL Hct 41.8 (41-53) % MCV 93.1 (80-100) fL MCH 32.0 (26-34) PG MCHC 34.3 (30-36) % RDW 13.6 (11.6-14.8) % Plt Count 153 (150-400) X10^3/uL Neut % (Auto) 75.2 H (50-75) % Lymph % (Auto) 11.3 L (25-40) % [place] % (Auto) 9.3 (3-14) % Eos % (Auto) 3.5 (2-4) % Baso % (Auto) 0.7 (0-2) % Neut # (Auto) 6600 (0543-7808) /uL Lymph # (Auto) 1000 L (2434-4518) /uL [place] # (Auto) 800 (0-900) /uL Eos # (Auto) 300 (0-450) /uL Baso # (Auto) 100 (0-100) /uL Sodium 137 (137-145) mmol/L Potassium 3.5 (3.4-5.1) mmol/L Chloride 106 (98-107) mmol/L Carbon Dioxide 25 (22-32) mmol/L BUN 18 (9-20) mg/dL Creatinine 1.01 (0.66-1.25) mg/dL Estimated GFR > 60 (>60) mL/min BUN/Creatinine Ratio 17.8 (6-22) Glucose 170 H (80-110) mg/dL Calcium 8.7 (8.4-10.2) mg/dL Point of Care Testing Glucose POC 150 MDM Narrative Medical decision making narrative: Patient is a 84-year-old male diabetes hypertension BPH recurrent falls neuropathy low back pain with history of L2 and L5 endplate vertebral fractures comes into the ED from facility with EMS for evaluation of low back pain. Here the patient had significant improvement after administration of Valium. CT scan showing no acute fractures showing more subacute to chronic fractures. Patient without any neurological deficits, had discussion with patient and daughter at bedside they are having concerns of being discharged back to the assisted living due the fact that he has recurrent falls and daughter states that he will require higher level of care. Social work consulted. 1331: Had discussion with Dr. Moy of Radiology, he states that there does appear to be subacute on chronic compression fractures of L2/L3 with no canal stenosis 1800: Patient was signed out to Dr. Nobles, patient has been evaluated by social work job titles, the patient and family have elected to do private pay, patient will require stay overnight until placement in the a.m. for rehab center. Ordered patient's home medications/daily medications. Dr nobles: Received turned over. Patient has been stable overnight. He was received his night medications. Care turned over today provider to continue to follow up until disposition. 06/04/2024 Dr. Flowers: Patient signed out to myself by Dr. Nobles. Patient seen and evaluated by myself, patient has no complaints currently. States he is feeling well denies any significant back pain. He has not been up and ambulating today. CBC and BMP added on, last labs from 01/28/23. Normal white count hemoglobin and platelets. Chemistries are appropriate creatinine is 1.01 glucose of 170. Exam heart is regular rate and rhythm lungs are clear to auscultation, patient has bilateral SCDs in place. Patient is alert, appropriate answers questions appropriately for myself. Defers major decisions about placement to his daughter. Homes medications have been ordered. PT evaluated patient, patient noted he was modified independent with bed mobility, transfers and short distance ambulation using a FWW. Was also receiving PT and OT prior to his most recent fall with a history of falls. Patient found to require max assist x2 with bed mobility and [id number] and unable to tolerate standing to be able to transfer ambulate room recommend mechanical lift transfers with nursing staff at this time requiring sniff rehab for overall strength and mobility. Can use hot cold packs, lumbar precautions including [place], no twisting limit bending lifting restriction of 10 lb. To the affected area please see PT note for more specific details. Patient has been accepted at [facility]. Discharge Plan Departure Patient Disposition: SNF Clinical Impression: Lumbar vertebral fracture, Compression fracture of thoracic vertebra Activity Restrictions/Additional Instructions: Please follow up for recheck in the next week. You have multiple vertebral compression fractures in the thoracic and lumbar spine there is some subacute changes to the ones in your lumbar spine. Physical therapy recommendations, patient was was receiving PT/OT prior to most recent fall at this time recommend SNF and 2 person assist with mechanical lift, continued PT/OT treatment. You can continue your home medications as prescribed. YOu can take Tylenol up to a 1000 mg every 6 hours in addition to your home medications for pain management. Please return for new or worsening changes, new or rapidly worsening back pain, new or changing weakness, loss of bowel or bladder control, loss of sensation or difficulty with moving your extremities or other new or concerning changes. Prescriptions: No Action clobetasol 0.05 % ointment 1 applic topical DAILY PRN (Reason: Rash) calcium carbonate 500 mg calcium (1,250 mg) Capsule 500 mg PO DAILY alendronate 70 mg tablet 70 mg PO QWEEK acetaminophen 500 mg Tablet 1,000 mg PO Q6H PRN (Reason: pain / ) furosemide 80 mg tablet 80 mg PO DAILY nystatin 100,000 unit/gram cream 1 applic topical BID PRN (Reason: Rash) ibuprofen 600 mg Tablet 600 mg PO Q6H PRN (Reason: Pain (Scale Score 4-6)) cholecalciferol (vitamin D3) 25 mcg (1,000 unit) Capsule 25 mcg PO DAILY cyclobenzaprine 5 mg tablet 5 mg PO 3XD PRN (Reason: Muscle Spasm) Advil PM 200-38 mg Tablet 2 cap PO BEDTIME psyllium husk [Metamucil] 0.4 gram Capsule 0.4 g PO BEDTIME insulin glargine [Lantus Solostar U-100 Insulin] 100 unit/mL (3 mL) insulin pen 15 unit SUBCUT QAM amlodipine [Norvasc] 5 mg Tablet 10 mg PO DAILY Qty: 30 0RF aspirin 81 mg Tablet,Delayed Release (Dr/Ec) 81 mg PO DAILY Qty: 30 0RF potassium chloride [Klor-Con M20] 20 mEq Tablet,Er Particles/Crystals 40 meq PO DAILY Qty: 30 0RF tamsulosin [Flomax] 0.4 mg Capsule 0.4 mg PO BEDTIME Qty: 30 0RF atorvastatin 20 mg Tablet 80 mg PO BEDTIME Qty: 120 0RF clopidogrel 75 mg Tablet 75 mg PO DAILY Qty: 20 0RF polyethylene glycol 3350 17 gram Powder In Packet 17 g PO DAILY PRN (Reason: Constipation) Qty: 14 0RF oxycodone 5 mg Tablet 5 mg PO Q4HR PRN (Reason: Pain, Moderate (4-6)) Qty: 15 0RF sennosides [senna] 8.6 mg Tablet 8.6 mg PO BID PRN (Reason: Constipation) Qty: 30 0RF SNF Discharge Plan Other facility: [facility] Transportation: [facility] I certify the postop hospital half-way care is medically necessary on a continuing basis for any conditions for which he/ she received care during this hospitalization.: Yes The receiving facility has agreed to accept transfer and provide medical treatment.: Yes Diet/Activity/Treatments Diet: Carb-consistent/Diabetic and Low-sodium Liquid consistency: Normal/Thin Food texture: Regular [facility] Rehab type: Physical therapy Restrictions to mobility: lumbar precautions, no lifting restriction of 10 lb.
[2024-06-03] MEDS: diazePAM 2 MG TABLET PO (13:13)
[2024-06-03] MEDS: IBUPROFEN 400 MG TABLET 800 MG PO (13:13)
--- NOTE | 2024-06-03 17:12 | CM.DANOTE ---
Addendum entered by ALBINA Juarez 06/03/24 19:25: Pt daughter requested for PT evaluation to assist with placement/baseline of pt before SNF Rehab. ED CIVIL DRAFTING TECHNICIAN discussed this with ED Provider, order already placed for PT Consult. Plan: Pt boarding until acceptance to SNF Rehab. ED Staff following for discharge coordination. VIRGILIO Mitchell Original Note: ED CIVIL DRAFTING TECHNICIAN DCP Assessment Note: Pt is a 84yo male, resident of [place], presented to the ED due to pack pain and neuropathy which has resulted in multiple falls in the last two weeks for pt. Pt lives in a Assisted Living Facility, [facility]. Pt's Primary Care Provider is Angela Harris PA-C and insurance is [employer] [facility]. Reviewed chart and team rounds for pt's medical status and initial discharge needs. ED CIVIL DRAFTING TECHNICIAN met w/patient at bedside; introduced self and role. Present in the room is pt's daughter, Ruth. Patient was found in bed, alert and oriented, cooperative with assessment. Pt confirmed living situation and good support in daughter who is local. Pt daughter explained concerns for pt to return back to Assisted living unit as there is no 10/04 supervision and with pt's recent fall/increased pain, she feels more assistance is needed at this time. Pt and daughter expressed preference in SNF Rehab at [facility]. Pt has a hx of SNF Rehab at [facility]. Per pt and family, they are willing to pay privately for SNF Rehab admission at this time. DCP spoke with Billie at [facility] and it was reported that there are available male beds at their facility at this time. Per Admissions, pt can pay privately (daily rate of $385.00 with 1month payment at time of admission). DCP called [facility] and spoke with PATEL Yost. Per RN, if pt is not able to bear weight or transfer due to pain, they will not able to support safely due to limited staff and no mechanical lifts in their facility. DCP discussed above with pt and daughter, both agreeable with plans of SNF Rehab, understanding that intake might not be available until next business day (06/04/24). DCP sent packet to Admissions at [facility] for review, called Admissions 3x and it is reported that they have left for the business day. DCP reviewed the above with solar installation manager and ED Provider. Plan: Pt to board in ED until pending admission at [facility] SNF Rehab. CM team will follow closely for coordination of discharge plans. VIRGILIO Mitchell Discharge Planning/Care Management CM Discharge Assessment Start: 06/03/24 17:07 Freq: Status: Active Protocol: Document 06/03/24 17:07 MW (Rec: 06/03/24 17:11 MW [id number]) Discharge Planning Assessment Assigned Head Control Clerk ALBINA Gomez DPOA/Assigned Designee Name Ruth Tovar, Daughter Contact Information [phone] Advance Directives? Yes History Provided By Patient,Family Member,Medical Record Has Patient been admitted in last 30 No days? Prior Living Arrangements Assisted Living Comment [facility] Household Members none Type of transporation used prior to Relies on Others admit Facility Name Admitted From: [facility]isted [facility] Willing to Return to Facility? Yes Independent with ADL's Yes Is patient alert and oriented? Yes Needs Assistance With Meal Prep,Managing Medications ,Home Chores / Shopping Caregiver for Another No DME Already Rented / Owned Wheelchair,FWW / Walker Patient/Family Preference Group Home Facility Comment Daughter concerned for fall risk since not able to transfer independently due to pain levels. Per SKILLED NURSING RN, if pt not able to bear weight or transfer, it will be unsafe for pt to return due to limited staff and no mechanical lift system available. Discharge Plan Group Home Facility Transportation Arrangement Facility Referrals Initiated Group Home Additional Comment [facility], possibly [facility] If patient plan is SNF: Has PASSR been No completed? Medicare Choice List Provided Yes Medicare choice list reviewed on patient,family electronic tablet with SNF/HH Preference [facility] Has Agency SNF been contacted Yes Comment Private pay available for pt, transfer not available until next business day (06/04). Please Provide Date Initial DC 06/03/24 Assessment Was Performed Next Review Type Continued Stay Review
[2024-06-03] MEDS: ATORVASTATIN 20 MG TABLET 80 MG PO (21:18)
[2024-06-03] MEDS: TAMSULOSIN 0.4 MG CAPSULE PO (21:18)
[2024-06-04] VITALS (7 sets, daily range): BP systolic 144–162; BP diastolic 77–106; PULSE 67–102; RESP 17; TEMP 36.9; O2SAT 93–98
--- NOTE | 2024-06-04 01:48 | PC.NURSE ---
Allowed pt to sleep. Will reassess after pt awakens.
[2024-06-04] MEDS: INSULIN GLARGINE 100 UNIT/ML 3ML PEN 15 UNIT SUBCUT (06:35)
[2024-06-04 07:45] LABS: Add Manual Diff / Slide Review NO; Basophils Absolute Auto 100 /uL (0-100); Basophils Percent Auto 0.7 % (0-2); Eosinophils Absolute Auto 300 /uL (0-450); Eosinophils Percent Auto 3.5 % (2-4); Hematocrit 41.8 % (41-53); Hemoglobin 14.4 g/dL (13.5-17.5); Lymphocytes Absolute Auto 1000 /uL (1100-4500); Lymphocytes Percent Auto 11.3 % (25-40); Mean Corpuscular HGB Conc 34.3 % (30-36); Mean Corpuscular Volume 93.1 fL (80-100); Monocytes Absolute Auto 800 /uL (0-900); Monocytes Percent Auto 9.3 % (3-14); Neutrophils Absolute Auto 6600 /uL (1500-7000); Neutrophils Percent Auto 75.2 % (50-75); Platelet Count 153 X10^3/uL (150-400); Red Blood Cell Count 4.49 X10^6/uL (4.5-5.9); Red Cell Distribution Width 13.6 % (11.6-14.8); White Blood Cell Count 8.8 X10^3/uL (4.5-11.0)
[2024-06-04 08:07] LABS: BUN Creatinine Ratio 17.8 (6-22); Blood Urea Nitrogen 18 mg/dL (9-20); Calcium 8.7 mg/dL (8.4-10.2); Carbon Dioxide 25 mmol/L (22-32); Chloride 106 mmol/L (98-107); Estimated Glomerular Filt Rate > 60 mL/min (>60); Glucose 170 mg/dL (80-110); HEMOLYSIS < 15 (0-50); Potassium 3.5 mmol/L (3.4-5.1); Sodium 137 mmol/L (137-145)
[2024-06-04] MEDS: AMLODIPINE 5 MG TABLET PO (08:25)
[2024-06-04] MEDS: CLOPIDOGREL 75 MG TABLET PO (08:25)
[2024-06-04] MEDS: ASPIRIN EC 81 MG TABLET PO (08:26)
[2024-06-04] MEDS: FUROSEMIDE 40 MG TABLET 80 MG PO (08:28)
--- NOTE | 2024-06-04 12:25 | PT.IIE ---
Medical History E. coli urinary tract infection Gross hematuria Recurrent urinary tract infection Secondhand smoke exposure Physical Therapy Inpatient Evaluation/Re-Eval M1 PT/OT-IP Prior Functional Status Start: 06/04/24 13:20 Freq: Status: Active Protocol: Document 06/04/24 12:25 AB (Rec: 06/04/24 13:38 AB [id number]) Medical Review Prior Functional Status Medical History Reviewed Yes Communication able to make needs known Mobility and Gait pt stated that he was modified independent with bed mobility , transfers and short distance ambulation using a FWW. pt only ambulated in his apartment and uses a manual w/ c for long distance/outside his apartment for mobility Activities of Daily Living and IADL's pt stated that [facility] staff assists him with medications, dressing, shower needs or when he calls for assistance Prior Functional Level (Other details) daughter stated that pt has h/ o falls: has been receiving HHPT and OT prior to recent fall Social History Household Members none Living Arrangements Assisted Living Number of Floors (Floors) 3 or More Floors Number of Stairs To Enter/Railing? pt lives at [facility]: 2nd level with access to an elevator Home Environment High Toilet,Walk in Shower, Built-In Shower Seat Home Equipment Front Wheel Walker,Manual Wheelchair,Grab Bars Near Toilet,Grab Bars In Shower Additional Social History Comment pt can call for assistance when needed pt has an adjustable bed M2 PT-IP Current Condition Start: 06/04/24 13:20 Freq: Status: Active Protocol: Document 06/04/24 12:25 AB (Rec: 06/04/24 13:38 [id number]) Physical Therapy Current Condition Current Condition Evaluation Date 06/04/24 Treatment Diagnosis s/p fall; T12, L1, L5 compression fx; difficulty in walking Onset Date 06/04/24 M3 PT-IP Subjective Start: 06/04/24 13:20 Freq: Status: Active Protocol: Document 06/04/24 12:25 AB (Rec: 06/04/24 13:38 AB [id number]) Subjective Physical Therapy Visit Type Type Initial Evaluation Visit Start Time 12:25 Visit Stop Time 13:10 Number of FIREBRICK LAYER HELPER Visits 0 Physical Therapy Visit Comments Patient Comments agreeable to do PT Therapy Pain Assessment Pain When Pain Assessed At Rest Location Back Intensity 3 Scale Used increases to 5/10 with mobility M4 PT-IP Mobility and Gait Start: 06/04/24 13:20 Freq: Status: Active Protocol: Document 06/04/24 12:25 AB (Rec: 06/04/24 13:38 AB [id number]) PT-Bed Mobility Assessment Rolling Type of Rolling Log Rolling Level of Assist Maximal Assistance Supine to Sit Supine to Sit Maximum Assistance,1 Person Assistance,2 Person Assistance ,Head of Bed Elevated,Bedrails Sit to Supine Sit to Supine Maximum Assistance,2 Person Assistance PT-Transfer Assessment Sit to and From Stand Sit to and from Stand Maximum Assistance,2 Person Assistance,Use of Upper Extremities Equipment Transfer Assistive Device Gait Belt,Front Wheeled Walker Orthotic/Prosthetic Devices or Brace: Yes Comments Mobility Comments pt supine in bed and daughter in room. obtained PLOF and home set up from pt and daughter. BP: 133/58 O2 sat at RA: 93% and UT: varies: 83- 120. educated pt regarding back precautions and log roll bed mobility. pt completed supine to sit log roll max A x 1-2 and max cues. pt c/o slight lightheadedness in sitting. BP checked: 151/68. (+) SOB but O2 sat 93%. pt required mod A for initial sitting balance with increase posterior trunk lean. positioned pt on EOB max A and max cues and able to sit CGA afterwards. pt completed sit to stand max A x 1 but unable to stand upright and has to sit down after ~ 3 sec of standing. c/o back pain isha to BLE and also c/o BLE weakness. completed sit to stand again max A x 2 and max cues and was able to stand a little more upright but only tolerated ~ 5 sec of standing and needing to sit back down. assisted pt towards HOB with scooting max A x 1-2 and max cues. pt required max A x 2 for log roll sit to supine. positioned pt in bed. call light and table placed within reach. Gait Assessment Comments Gait Comments unable at this time PT-Balance Assessment Sitting Balance and Reactions Static Sitting Balance Ability Good Dynamic Sitting Balance Ability Fair Standing Balance and Reactions Static Standing Balance Ability Poor Dynamic Standing Balance Ability Poor Device Used FWW M5 PT-IP Objective Assessments Start: 06/04/24 13:20 Freq: Status: Active Protocol: Document 06/04/24 12:25 AB (Rec: 06/04/24 13:38 AB [id number]) Orientation Orientation/Cognition Level of Alertness Alert Orientation Name,Situation Language Function Ability Hard of Hearing Safety Awareness Decreased Safety Awareness Memory Description Short Term Impaired Strength Lower Extremity Strength Assessment Bilaterally Impaired Hip B: 3-/5 Knee B: 3+/5 Ankle bilateral foot drop: Sensation Assessment Sensation Sensation Description Numbness Comments Sensation Comments BLE neuropathy from knees to B feet Muscle Tone Muscle Tone WNL Yes M6 PT-IP Treatment Start: 06/04/24 13:20 Freq: Status: Active Protocol: Document 06/04/24 12:25 AB (Rec: 06/04/24 13:38 AB [id number]) Physical Therapy Treatment Education Education Provided Precautions,Safety M7 PT-IP Assessment and Plan Start: 06/04/24 13:20 Freq: Status: Active Protocol: Document 06/04/24 12:25 AB (Rec: 06/04/24 13:38 AB [id number]) PT Summary Assessment and Plan Potential Rehabilitation Potential Fair Status of Condition at Evaluation Evolving Summary Impairments Pain,ROM,Strength,Balance, Coordination,Sensation,Tone, Cognition,Bed Mobility, Transfers,Gait,Activity Tolerance Assessment Summary pt is an 84 y/o M who presented to the ED after a fall. pt with h/o falls per daughter. pt found to have T12, L1, L5 compression fxs. pt requiring max Ax 2 with bed mobility and sit to stand and unable to tolerate standing to be able to transfer or ambulate. Recommending mechanical lift transfers with nursing staff at this time. pt will require SNF rehab to improve overall strength and mobility. will continue to assess. Goals Bed Mobility Goal Minimal Assistance Transfer Goal Minimal Assistance,Front Wheeled Walker Gait Goal Minimal Assistance,Front Wheel Walker Gait Distance 25 Other Goals improve bed mobiltiy, transfers and ambulation using FWW SBA ~ 40 ft Days to Meet Goals 10 Frequency of Treatment Frequency Of Treatment Once a Day Treatment Plan Physical Therapy Treatment Plan Bed Mobility Training,Transfer Training,Gait Training, Therapeutic Exercise,Balance Retraining,Discharge Planning, Hot or Cold Pack,Neuromuscular Re-ed,Coordination Retraining ,Manual Therapy Precautions Lumbar Precautions Log Roll,No Twisting,Limit Bending,Lifting Restriction of 10 lbs Other Precautions falls Recommendations To Nursing Amount of Assist Needed Mechanical Lift Discharge Recommendations PT Discharge Recommendations SNF Rehab Transportation Needs at Discharge Wheelchair/Cabulance
--- NOTE | 2024-06-04 13:16 | PC.NURSE ---
pt brief changed
--- NOTE | 2024-06-04 14:58 | CM.SWNOTE ---
ED TRAUMA DIRECTOR Note PT recommends SNF rehab. TRAUMA DIRECTOR faxes PASSR, H&P and PT eval to Billie at [facility], It is reported that patient is accepted private pay. Billie speaks with patient's daughter about next steps for payment and insurance changes that may need to be made. TRAUMA DIRECTOR meets with patient and daughter, they are in agreement with [facility] SNF rehab for private pay. TRAUMA DIRECTOR faxes signed med list and ED provider SNF orders to [facility]. [facility] is providing transport en route to tow picker patient at 1500 and bring him to facility, patient's daughter plans to follow patient there in her vehicle. Leigh Adhikari, DEHYDRATOR OPERATOR
--- NOTE | 2024-06-04 15:26 | PC.NURSE ---
Called [facility] to give report,
== END 2024-06-04 15:27 ==
PROVIDERS: Emergency Provider Emergency Medicine
DX: S32.019A Unspecified fracture of first lumbar vertebra, initial encounter for closed fracture (principal); S32.059A Unspecified fracture of fifth lumbar vertebra, initial encounter for closed fracture; Z79.899 Other long term (current) drug therapy; I10 Essential (primary) hypertension; S22.009A Unspecified fracture of unspecified thoracic vertebra, initial encounter for closed fracture; R29.6 Repeated falls; W18.30XA Fall on same level, unspecified, initial encounter
CPT/HCPCS: 36415; 72131; 80048; 82962; 85025; 97162; 97530; 99284